=== PATIENT | male | born 1935 | race Caucasian/White ===

== ENCOUNTER 2016-09-21 12:28 | Observation (INO) | payer MEDICARE, BC ==
[2016-09-21] MEDS ORDERED: NS 0.9% 1000 ML* 1,000 ML IV SCH (13:00)
[2016-09-21] MEDS ORDERED: NS 0.9% 1000 ML* 1,000 ML IV ONE (13:35)
[2016-09-21] MEDS ORDERED: Ketorolac INJ* 30 MG/ML 1 ML VIAL IV ONE (13:35)
[2016-09-21 14:13] LABS: Hematocrit 41 % (42-52); Hemoglobin 13.4 g/dl (14.0-18.0); Mean Corpuscular HGB Conc 33 g/dl (31-36); Mean Corpuscular Hemoglobin 31 pg (27-31); Mean Corpuscular Volume 93 fL (80-94); Mean Platelet Volume 10 um3 (7.4-10.4); Red Cell Distribution Width 14 % (10.5-15); White Blood Count 11.5 10^3/ul (3.5-10.8)
[2016-09-21 14:30] LABS: ALT 10 U/L (7-52); AST 14 U/L (13-39); Albumin 3.7 g/dL (3.2-5.2); Alkaline Phosphatase 77 U/L (34-104); Anion Gap 7 mmol/L (2-11); BUN/Creatinine Ratio 23.2 (8-20); Blood Urea Nitrogen 22 mg/dL (6-24); C Reactive Protein 57.57 mg/L (< 5.00); CO2 Carbon Dioxide 27 mmol/L (22-32); Calcium 9.8 mg/dL (8.6-10.3); Chloride 102 mmol/L (101-111); Creatine Kinase 48 U/L (10-223); EGFR African American 97.6 (>60); EGFR Non-African American 75.9 (>60); Globulin 3.3 g/dL (2-4); Glucose 132 mg/dL (70-100); Lipase < 10 U/L (11.0-82.0); Magnesium 1.7 mg/dL (1.9-2.7); Potassium 3.7 mmol/L (3.5-5.0); Sodium 136 mmol/L (133-145)
[2016-09-21 15:03] LABS: TSH (Thyroid Stimulating Horm) 3.01 mcIU/mL (0.34-5.60)
[2016-09-21] MEDS ORDERED: Acetaminophen TAB* 325 MG PO PRN (16:25)
[2016-09-21] MEDS ORDERED: Ondansetron INJ* 2 MG/ML VIAL IV PRN (16:25)
[2016-09-21] MEDS ORDERED: Morphine INJ* 2 MG/ML 1 ML SYRINGE IV PRN (16:36)
[2016-09-21] MEDS ORDERED: oxyCODONE/Acetamin 5/325 MG* TAB ONE (16:45)
[2016-09-21] MEDS: oxyCODONE/Acetamin 5/325 MG* TAB PO PRN (16:49)
[2016-09-21] MEDS ORDERED: Magnesium Sulfate 2 GM IV* 2 GM/50 ML BAG IVPB ONE (16:49)
[2016-09-21 19:07] LABS: Uric Acid 5.5 mg/dL (4.4-7.6)
[2016-09-21] MEDS: Tamsulosin CAP* 0.4 MG PO SCH (19:30)
[2016-09-21] MEDS: NS 0.9% 1000 ML* 1,000 ML IV SCH (19:31)
[2016-09-21] MEDS: Heparin VIAL(*) 5000 UNITS/ML VIAL (FIVE THOUSAND) SUBCUT SCH (21:51)
--- NOTE | 2016-09-21 22:14 | ED ---
Daya Randall Edward, scribed for Felton Chang MD on 09/21/16 at 1320 . Complex/Multi-Sys Presentation - HPI Summary HPI Summary: 81 y/o male presents to ED c/o body aches and bites on his right lower leg. Patient states chronic, intermittent joint problems that became worse two days ago, when the bug bites appeared as well. Patient states lower back, hip, neck, and L elbow. He states he cannot bear weight on legs due to pain. The L elbow soreness is now resolved. Associated sx: rash around bites. Patient was [place] Dr. Michelle Onofre (PCP[place] [facility] [place] and given Doxycycline, of which he took 2 doses and then stopped. - History Of Current Complaint Chief Complaint: EDWeakness Time Seen by Provider: 09/21/16 13:16 Hx Obtained From: Patient Onset/Duration: Gradual Onset, Still Present Timing: Constant Severity Currently: Severe Severity Initially: Severe Location: Pain At: - Lower back, hips, neck, bilateral legs, L elbow, wrist Aggravating Factor(s): Bearing weight Associated Signs And Symptoms: Positive: Back Pain, Other - Rash around bites - Allergies/Home Medications Allergies/Adverse Reactions: Allergies Allergy/AdvReac Type Severity Reaction Status Date / Time seafood Allergy Vomiting Uncoded 01/27/16 08:08 Home Medications: Home Medications Nxeptgy-Ckbiknnkeetgk-Nkcddnnd [Excedrin Extra Strength] 2 tab PO BID PRN [History Confirmed 09/21/16] Calcium Carbonate-Vitamin D [Calcium 500 + D] 1 - 2 tab PO DAILY 09/21/16 [ History Confirmed 09/21/16] Cyanocobalamin TAB* [Vitamin B12 TAB*] 1,000 mcg PO DAILY 09/21/16 [History Confirmed 09/21/16] DOXYcycline CAP(*) [DOXYcycline 100MG CAP(*)] 100 mg PO BID 09/21/16 [History Confirmed 09/21/16] DULoxetine DR CAP* [Cymbalta CAP*] 30 - 60 mg PO DAILY 09/21/16 [History Confirmed 09/21/16] Leuprolide Acetate (NF) [Lupron Depot (NF)] 45 mg IM Q6M 09/21/16 [History Confirmed 09/21/16] Levothyroxine TAB* [Synthroid TAB*] 100 mcg PO DAILY 09/21/16 [History Confirmed 09/21/16] Lidocaine PATCH 5%* [Lidoderm 5% Patch*] 1 - 2 patch TRANSDERM DAILY 09/21/16 [ History Confirmed 09/21/16] Naproxen Sodium [Naproxen Sodium 220 mg] 220 mg PO BID PRN 09/21/16 [History Confirmed 09/21/16] Omeprazole CAP* [Prilosec CAP* 20 MG] 20 mg PO DAILY 09/21/16 [History Confirmed 09/21/16] Sertraline* [Zoloft*] 100 mg PO DAILY 09/21/16 [History Confirmed 09/21/16] Tamsulosin CAP* [Flomax CAP*] 0.4 mg PO BID 09/21/16 [History Confirmed 09/21/16 ] oxyCODONE/Acetamin 5/325 MG* [Percocet 5/325 TAB*] 1 tab PO Q8H PRN 09/21/16 [ History Confirmed 09/21/16] predniSONE TAB* [Deltasone TAB*] 10 mg PO DAILY 09/21/16 [History Confirmed ] PMH/Surg Hx/FS Hx/Imm Hx Previously Healthy: No Endocrine/Hematology History: Reports: Hx Thyroid Disease Denies: Hx Diabetes, Hx Sickle Cell Disease Cardiovascular History: Denies: Hx Hypertension, Hx Pacemaker/ICD, Other Cardiovascular Problems/ Disorders Respiratory History: Denies: Other Respiratory Problems/Disorders GI History: Reports: Hx Gastroesophageal Reflux Disease - ON MEDICATION History: Reports: Hx Kidney Stones - LEFT SIDE Denies: Hx Dialysis, Hx Renal Disease Musculoskeletal History: Reports: Hx Arthritis - SHOULDERS, THUMBS, HANDS Sensory History: Reports: Hx Contacts or Glasses - READING Denies: Hx Hearing Aid Opthamlomology History: Reports: Hx Contacts or Glasses - READING Neurological History: Denies: Other Neuro Impairments/Disorders Psychiatric History: Denies: Hx Panic Disorder - Cancer History Cancer Type, Location and Year: MELANOMA. PROSTATE CA Hx Radiation Therapy: Yes - Surgical History Surgery Procedure, Year, and Place: [place] TOP OF HEAD, CORNER OF LEFT EYE. BILATERAL KNEE REPLACEMENT - 2011 [place]. [facility]- [facility]ULT. UNDESCENDED TESTICLE REMOVAL Hx Anesthesia Reactions: No Infectious Disease History: Denies: Hx Hepatitis, Hx Shingles, Hx Tuberculosis, Traveled Outside the [place] in Last 30 Days - Family History Known Family History: Positive: Other - OSTEOPENIA - Social History Alcohol Use: Daily Alcohol Amount: 2/day Substance Use Type: Reports: Marijuana, Prescribed Substance Use Comment - Amount & Last Used: percocet prn Smoking Status (MU): Former Smoker Type: Cigarettes Have You Smoked in the Last Year: Yes Review of Systems Constitutional: Negative Eyes: Negative ENT: Negative Cardiovascular: Negative Respiratory: Negative Gastrointestinal: Negative Genitourinary: Negative Positive: Arthralgia - Pain in lower back, hips, neck, bilateral legs, L elbow, wrist Skin: Other Positive: Rash - Bites in R lower leg with rash around bites Neurological: Negative Psychological: Normal All Other Systems Reviewed And Are Negative: Yes Physical Exam Triage Information Reviewed: Yes Vital Signs On Initial Exam: Initial Vitals Temp Pulse Resp BP Pulse Ox 97.8 F 70 14 152/63 100 09/21/16 12:38 09/21/16 12:38 09/21/16 12:38 09/21/16 12:38 09/21/16 12:38 Vital Signs Reviewed: Yes Appearance: Positive: Well-Appearing, No Pain Distress Skin: Positive: Warm, Skin Color Reflects Adequate Perfusion, Dry, Other - Excoriated scabbed over lesions sparsely in R lower leg. Head/Face: Positive: Normal Head/Face Inspection Eyes: Positive: Normal ENT: Positive: Normal ENT inspection Neck: Positive: Supple, Tenderness @ - Tender paracervically to palpation., Other: - No meningeal signs. Respiratory/Lung Sounds: Positive: Clear to Auscultation, Breath Sounds Present Cardiovascular: Positive: RRR Abdomen Description: Positive: Nontender, Soft Bowel Sounds: Positive: Present Musculoskeletal: Positive: Normal Neurological: Positive: Normal Psychiatric: Positive: Normal, Affect/Mood Appropriate Diagnostics - Vital Signs Vital Signs Temp Pulse Resp BP Pulse Ox 09/21/16 12:38 97.8 F 70 14 152/63 100 - Laboratory Lab Results: Lab Results 09/21/16 09/21/16 09/21/16 Range/Units 14:00 14:00 14:00 WBC 11.5 H (3.5-10.8) 10^3/ul RBC 4.40 (4.0-5.4) 10^6/ul Hgb 13.4 L (14.0-18.0) g/dl Hct 41 L (42-52) % MCV 93 (80-94) fL MCH 31 (27-31) pg MCHC 33 (31-36) g/dl RDW 14 (10.5-15) % Plt Count 152 (150-450) 10^3/ul MPV 10 (7.4-10.4) um3 Neut % (Auto) 87.6 H (38-83) % Lymph % (Auto) 4.5 L (25-47) % [place] % (Auto) 7.5 (1-9) % Eos % (Auto) 0.1 (0-6) % Baso % (Auto) 0.3 (0-2) % Absolute Neuts (auto) 10.0 H (1.5-7.7) 10^3/ul Absolute Lymphs (auto) 0.5 L (1.0-4.8) 10^3/ul Absolute Monos (auto) 0.9 H (0-0.8) 10^3/ul Absolute Eos (auto) 0 (0-0.6) 10^3/ul Absolute Basos (auto) 0 (0-0.2) 10^3/ul Absolute Nucleated RBC 0.01 10^3/ul Nucleated RBC % 0 ESR (0-40) mm/Hr INR (Anticoag Therapy) 1.13 H (0.89-1.11) APTT 28.1 (26.0-36.3) seconds Sodium 136 (133-145) mmol/L Potassium 3.7 (3.5-5.0) mmol/L Chloride 102 (101-111) mmol/L Carbon Dioxide 27 (22-32) mmol/L Anion Gap 7 (2-11) mmol/L BUN 22 (6-24) mg/dL Creatinine 0.95 (0.67-1.17) mg/dL Est GFR ( Amer) 97.6 (>60) Est GFR (Non-Af Amer) 75.9 (>60) BUN/Creatinine Ratio 23.2 H (8-20) Glucose 132 H (70-100) mg/dL Lactic Acid (0.5-2.0) mmol/L Uric Acid 5.5 (4.4-7.6) mg/dL Calcium 9.8 (8.6-10.3) mg/dL Magnesium 1.7 L (1.9-2.7) mg/dL Total Bilirubin 0.90 (0.2-1.0) mg/dL AST 14 (13-39) U/L ALT 10 (7-52) U/L Alkaline Phosphatase 77 (34-104) U/L Total Creatine Kinase 48 (10-223) U/L CK-MB (CK-2) 1.4 (0.6-6.3) ng/mL Troponin I 0.00 (<0.04) ng/mL C-Reactive Protein 57.57 H (< 5.00) mg/L Total Protein 7.0 (6.4-8.9) g/dL Albumin 3.7 (3.2-5.2) g/dL Globulin 3.3 (2-4) g/dL Albumin/Globulin Ratio 1.1 (1-3) Lipase < 10 L (11.0-82.0) U/L TSH 3.01 (0.34-5.60) mcIU/mL 09/21/16 09/21/16 Range/Units 14:00 14:00 WBC (3.5-10.8) 10^3/ul RBC (4.0-5.4) 10^6/ul Hgb (14.0-18.0) g/dl Hct (42-52) % MCV (80-94) fL MCH (27-31) pg MCHC (31-36) g/dl RDW (10.5-15) % Plt Count (150-450) 10^3/ul MPV (7.4-10.4) um3 Neut % (Auto) (38-83) % Lymph % (Auto) (25-47) % [place] % (Auto) (1-9) % Eos % (Auto) (0-6) % Baso % (Auto) (0-2) % Absolute Neuts (auto) (1.5-7.7) 10^3/ul Absolute Lymphs (auto) (1.0-4.8) 10^3/ul Absolute Monos (auto) (0-0.8) 10^3/ul Absolute Eos (auto) (0-0.6) 10^3/ul Absolute Basos (auto) (0-0.2) 10^3/ul Absolute Nucleated RBC 10^3/ul Nucleated RBC % ESR 33 (0-40) mm/Hr INR (Anticoag Therapy) (0.89-1.11) APTT (26.0-36.3) seconds Sodium (133-145) mmol/L Potassium (3.5-5.0) mmol/L Chloride (101-111) mmol/L Carbon Dioxide (22-32) mmol/L Anion Gap (2-11) mmol/L BUN (6-24) mg/dL Creatinine (0.67-1.17) mg/dL Est GFR ( Amer) (>60) Est GFR (Non-Af Amer) (>60) BUN/Creatinine Ratio (8-20) Glucose (70-100) mg/dL Lactic Acid 1.2 (0.5-2.0) mmol/L Uric Acid (4.4-7.6) mg/dL Calcium (8.6-10.3) mg/dL Magnesium (1.9-2.7) mg/dL Total Bilirubin (0.2-1.0) mg/dL AST (13-39) U/L ALT (7-52) U/L Alkaline Phosphatase (34-104) U/L Total Creatine Kinase (10-223) U/L CK-MB (CK-2) (0.6-6.3) ng/mL Troponin I (<0.04) ng/mL C-Reactive Protein (< 5.00) mg/L Total Protein (6.4-8.9) g/dL Albumin (3.2-5.2) g/dL Globulin (2-4) g/dL Albumin/Globulin Ratio (1-3) Lipase (11.0-82.0) U/L TSH (0.34-5.60) mcIU/mL Result Diagrams: 09/21/16 14:00 09/21/16 14:00 Lab Statement: Any lab studies that have been ordered have been reviewed, and results considered in the medical decision making process. Complex Multi-Symp Course/Dx Course Of Treatment: Mr. Kim saw his PMD about a week ago for 'bites' on his legs, achy joints and was started on doxycyline for a diagnosis of presumed lyme. He stopped the doxycycline after two doses because he felt worse. Now he feels even worse with achy joints. His exam was unremarkable except for tenderness to ROM of many areas. He was given IV rocephin and the hospitalists were asked to see him. - Diagnoses Provider Diagnoses: Sepsis Discharge - Discharge Plan Condition: Stable Disposition: ADMITTED TO [facility] The documentation as recorded by the Daya bridges Edward accurately reflects the service I personally performed and the decisions made by me, Felton Chang MD.
--- NOTE | 2016-09-22 02:06 | HP ---
AMENDED REPORT NOW INCLUDES COSIGNER DESIGNATION CC: Dr. Michelle Onofre * HISTORY AND PHYSICAL: DATE OF ADMISSION: 09/21/16 PRIMARY CARE PROVIDER: Dr. Michelle Onofre. ATTENDING PHYSICIAN: Dr. Banks * (DICTATED BY MARIYA OCHOA NP) CHIEF COMPLAINT: 1. Weakness. 2. Generalized pain. HISTORY OF PRESENT ILLNESS: Mr. Kim is an 81-year-old male patient. He has a history of hypothyroidism, back pain, GERD, depression, and prostate cancer. He comes in to the ER today stating that over the last couple days, he has been more drowsy. He has been aching all over. He has not been feeling well. He has been having pain particularly in his right ankle and foot, more pain when he goes to step on them. He states he has recently had bug bites noted to his lower extremities. There was concern for possible Lyme. He was placed on doxycycline and Cymbalta 2 days ago. The Cymbalta was for possible fibromyalgia according to the patient and the doxy was for possible Lyme. He states he was taking both of these, but he actually started feeling worse 2 days ago, so he stopped them. He has not been taking them for a day. He states he does not have any shortness of breath or chest pain. He states he has noticed that there has been inflammation around the recent bug bites. He denies having any target rashes. He does admit to having some neck pain, but no headache, no confusion, just not feeling well, drowsy and fatigued, and he has been having pain mostly in the right ankle, but also in the elbows, the wrists, the knees. He has generalized aches all over. He was concerned today because the pain was unbearable, he could not really stand on the foot, and the patient came in to the ER to be evaluated. PAST MEDICAL HISTORY: Significant for: 1. Hypothyroidism. 2. Chronic back pain. 3. GERD. 4. Depression. 5. Prostate cancer. PAST SURGICAL HISTORY: 1. The patient has had a hernia repair. 2. Bilateral total knee replacement. HOME MEDICATIONS: Include: 1. Lupron 45 mg IM every 6 months. 2. Vitamin B12 1000 mcg p.o. daily. 3. Excedrin 2 tablets p.o. b.i.d. as needed. 4. Flomax 0.4 mg p.o. b.i.d. 5. Calcium and vitamin D 1 to 2 tablets p.o. daily. 6. Percocet 1 tablet every 8 hours. 7. Lidocaine patch 1 to 2 patches transdermally daily. 8. Naproxen 220 mg p.o. b.i.d. as needed. 9. Prednisone 10 mg daily. 10. Zoloft 100 mg p.o. daily. 11. Prilosec 20 mg daily. 12. Synthroid 100 mcg daily. 13. Cymbalta 36 mg daily. 14. Doxycycline 100 mg p.o. b.i.d. ALLERGIES TO MEDICATIONS: Include no known drug allergies. FAMILY HISTORY: Mother had a history of dementia; father had a history of CVA. SOCIAL HISTORY: He is a former smoker. He does drink 2 cocktails at night. Surrogate decision maker is his . REVIEW OF SYSTEMS: There is no documented fever. He denied having any significant weight change. There was no double vision. There is no ear discharge. There was no rhinorrhea. No sore throat. No thyroid enlargement. Denies having any chest pain. There is no orthopnea. There is no nocturnal dyspnea. There is no abdominal pain. No nausea. No vomiting. No dysuria. No frequency. No seizure. No loss of consciousness. No pruritus. No skin ulcerations. Review of 14 systems completed, all others negative. PHYSICAL EXAMINATION GENERAL: At this time, Mr. Kim is an 81-year-old male patient, coming in to the ER, appears to be well nourished, well developed. VITAL SIGNS: Blood pressure 130/45, pulse 79, respirations 20, O2 sat 95%, and temperature 97.8. HEENT: Head is atraumatic, normocephalic. Eyes: EOMs are intact. Sclerae are anicteric and not pale. Throat: Oral mucosa appears to be moist. No oropharyngeal erythema. NECK: Supple. LUNGS: Clear to auscultation bilaterally. No wheezes, rales, or rhonchi. HEART: Sounds S1, S2. Regular rate and rhythm. No murmurs, rubs, or gallops. ABDOMEN: Soft, flat, and nontender. Bowel sounds present. EXTREMITIES: Pulses were 2+ throughout. He is able to move all 4 extremities at this point. His joints, his is moving them freely. He has no pain with flexion or extension. He did have 5/5 strength. He had no obvious erythema noted to the joints. NEUROLOGIC: He is awake, alert, and oriented x3. No gross focal deficits. SKIN: Intact. He does have small amount of erythema noted to the mid tibial area on the right lower extremity. Otherwise, his skin is intact. LABORATORY DATA: Today revealed a WBC of 11.5, RBC of 4.40, hemoglobin of 13.4 , hematocrit of 41, platelet count 152. INR 1.13. PTT of 28.1. Sodium 136, potassium 3.7, chloride of 102, bicarb 27, BUN 22, creatinine of 0.95, glucose 132. His lactic was 1.2, calcium 9.8, mag 1.7. Total bili 0.9, AST 14, ALT 10, alk phos 77. CK 48, CK-MB 1.4. Troponin 0. Albumin of 3.7. TSH of 3.01. Old medical records were reviewed. ASSESSMENT AND PLAN: Mr. Kim is an 81-year-old male patient coming in to the ER today with complaints of generalized joint pain, aches, and malaise. He will be admitted under observation status for: 1. Weakness: Etiology is unclear. He does have a slightly elevated white count. I think at this point we should send off Lyme serology. I will go ahead and get tick-borne panel, which has been sent by the ER. We will get a CRP. In addition to this, we will get an ESR, rheumatoid factor, MARIBEL, and a uric acid. If the Lyme panels come back positive, then I would probably get in touch with Dr. Negron. At this point, I will put him empirically on Rocephin as he did not tolerate the doxycycline. I ordered a PT evaluation. He is on a small dose of prednisone now. Differential for this generalized ache pain is broad, I mean it could be certainly Lyme, could be polymyalgia rheumatica, could be rheumatoid although this is late onset for that. At this point, I will send off general inflammatory markers and see if we can determine further causation. 2. Hypothyroidism: Continue Synthroid. 3. Chronic back pain: Continue his p.r.n. Percocet. 4. Gastroesophageal reflux disease: Continue PPI therapy. 5. Depression: Continue supportive care. 6. History of prostate cancer: Continue his Lupron. Follow with his primary. 7. DVT prophylaxis: He will be placed on heparin subcu. 8. Code status: Full code. 9. Fluids, electrolytes, and nutrition: He can have a regular diet. TIME SPENT: Time spent on the admission was 60 minutes; greater than half the time was spent [id number] with the patient obtaining my history and physical, other half the time spent going over the plan of care with the patient and implementing plan of care. I did discuss the plan of care with my attending, Dr. Banks; she is in agreement. MARIYA OCHOA, OPERATION AGENT [id number]/CPS #: [id number] JOSE
[2016-09-22 03:35] LABS: Urine Bacteria 1+ (Absent); Urine Bilirubin Negative (Negative); Urine Glucose Negative (Negative); Urine Nitrite Negative (Negative)
[2016-09-22 04:37] LABS: Comments Flag Yes; Hematocrit 36 % (42-52); Hemoglobin 11.8 g/dl (14.0-18.0); Mean Corpuscular HGB Conc 33 g/dl (31-36); Mean Corpuscular Hemoglobin 31 pg (27-31); Mean Corpuscular Volume 94 fL (80-94); Mean Platelet Volume 10 um3 (7.4-10.4); Red Blood Count 3.82 10^6/ul (4.0-5.4); Red Cell Distribution Width 14 % (10.5-15); White Blood Count 10.9 10^3/ul (3.5-10.8)
[2016-09-22 04:51] LABS: BUN/Creatinine Ratio 24.7 (8-20); Calcium 9.1 mg/dL (8.6-10.3); EGFR African American 95.3 (>60); EGFR Non-African American 74.1 (>60); Potassium 3.9 mmol/L (3.5-5.0)
[2016-09-22] MEDS ORDERED: Levothyroxine TAB* 100 MCG TAB PO SCH (06:00)
[2016-09-22] MEDS: Heparin VIAL(*) 5000 UNITS/ML VIAL (FIVE THOUSAND) SUBCUT SCH ×2 (06:01→13:58)
[2016-09-22] MEDS: oxyCODONE/Acetamin 5/325 MG* TAB PO PRN ×2 (06:05→10:59)
[2016-09-22] MEDS: NS 0.9% 1000 ML* 1,000 ML IV SCH (06:54)
[2016-09-22] MEDS ORDERED: Omeprazole CAP* 20 MG PO SCH (07:30)
[2016-09-22] MEDS ORDERED: predniSONE TAB* 10 MG PO SCH (08:30)
--- NOTE | 2016-09-22 08:42 | PN ---
Subjective Date of Service: 09/22/16 Interval History: Mr. Kim states that he is feeling much better than on arrival. He continues to have chronic generalized pain but it is at baseline. He is up ambulating in his room with a walker as needed. He denies other complaint including chest pain, SOB, nausea, or abdominal pain. Objective Active Medications: Acetaminophen (Tylenol Tab*) 650 mg PO Q4H PRN Heparin Sodium (Porcine) (Heparin Vial(*)) 5,000 units SUBCUT Q8HR [facility] Sodium Chloride (Ns 0.9% 1000 Ml*) 1,000 mls @ 100 mls/hr IV PER RATE [facility] Ceftriaxone Sodium 1,000 mg/ (Sodium Chloride) 50 mls @ 200 mls/hr IVPB Q24H [facility] Levothyroxine Sodium (Synthroid Tab*) 100 mcg PO DAILY@0600 [facility] Lidocaine (Lidoderm 5% Patch*) 1 patch TRANSDERM DAILY [facility] Morphine Sulfate (Morphine Inj (Syringe)*) 2 mg IV Q2H PRN Omeprazole (Prilosec Cap*) 20 mg PO DAILY@0730 [facility] Ondansetron HCl (Zofran Inj*) 4 mg IV Q6H PRN Oxycodone/Acetaminophen (Percocet 5/325 Tab*) 1 tab PO Q4H PRN Pharmacy Profile Note (Lidocaine Patch Remove*) 1 note PATCH OFF 2100 [facility] Prednisone (Deltasone Tab*) 10 mg PO DAILY WITH MEAL [facility] Sertraline HCl (Zoloft*) 100 mg PO DAILY [facility] Tamsulosin HCl (Flomax Cap*) 0.4 mg PO 0830,1730 [facility] Vital Signs 09/21/16 09/21/16 09/21/16 16:30 16:49 17:00 Temperature Pulse Rate 74 80 Respiratory 15 18 23 Rate Blood Pressure 109/42 115/42 (mmHg) O2 Sat by Pulse 95 96 Oximetry 09/21/16 09/21/16 09/21/16 19:20 19:26 20:32 Temperature 98.6 F 98.4 F Pulse Rate 75 82 Respiratory 18 16 Rate Blood Pressure 109/44 126/46 (mmHg) O2 Sat by Pulse 95 97 93 Oximetry 09/21/16 09/22/16 09/22/16 23:36 03:21 06:05 Temperature 98.8 F 98.4 F Pulse Rate 67 72 Respiratory 16 16 18 Rate Blood Pressure 135/53 146/59 (mmHg) O2 Sat by Pulse 95 95 Oximetry Oxygen Devices in Use Now: None Appearance: Male sitting up on edge of bed in NAD Eyes: No Scleral Icterus Ears/Nose/Mouth/Throat: Mucous Membranes Moist Neck: Trachea Midline Respiratory: Symmetrical Chest Expansion and Respiratory Effort, Clear to Auscultation Cardiovascular: NL Sounds; No Murmurs; No JVD, No Edema Abdominal: NL Sounds; No Tenderness; No Distention Lymphatic: No Cervical Adenopathy Extremities: No Edema Skin: No Rash or Ulcers Neurological: Alert and Oriented x 3, NL Muscle Strength and Tone Nutrition: Taking PO's Result Diagrams: 09/22/16 04:27 09/22/16 04:27 Additional Lab and Data: Lab Results 09/21/16 09/21/16 09/21/16 Range/Units 14:00 14:00 14:00 WBC 11.5 H (3.5-10.8) 10^3/ul RBC 4.40 (4.0-5.4) 10^6/ul Hgb 13.4 L (14.0-18.0) g/dl Hct 41 L (42-52) % MCV 93 (80-94) fL MCH 31 (27-31) pg MCHC 33 (31-36) g/dl RDW 14 (10.5-15) % Plt Count 152 (150-450) 10^3/ul MPV 10 (7.4-10.4) um3 Neut % (Auto) 87.6 H (38-83) % Lymph % (Auto) 4.5 L (25-47) % [place] % (Auto) 7.5 (1-9) % Eos % (Auto) 0.1 (0-6) % Baso % (Auto) 0.3 (0-2) % Absolute Neuts (auto) 10.0 H (1.5-7.7) 10^3/ul Absolute Lymphs (auto) 0.5 L (1.0-4.8) 10^3/ul Absolute Monos (auto) 0.9 H (0-0.8) 10^3/ul Absolute Eos (auto) 0 (0-0.6) 10^3/ul Absolute Basos (auto) 0 (0-0.2) 10^3/ul Absolute Nucleated RBC 0.01 10^3/ul Nucleated RBC % 0 ESR (0-40) mm/Hr INR (Anticoag Therapy) 1.13 H (0.89-1.11) APTT 28.1 (26.0-36.3) seconds Sodium 136 (133-145) mmol/L Potassium 3.7 (3.5-5.0) mmol/L Chloride 102 (101-111) mmol/L Carbon Dioxide 27 (22-32) mmol/L Anion Gap 7 (2-11) mmol/L BUN 22 (6-24) mg/dL Creatinine 0.95 (0.67-1.17) mg/dL Est GFR ( Amer) 97.6 (>60) Est GFR (Non-Af Amer) 75.9 (>60) BUN/Creatinine Ratio 23.2 H (8-20) Glucose 132 H (70-100) mg/dL Lactic Acid (0.5-2.0) mmol/L Uric Acid 5.5 (4.4-7.6) mg/dL Calcium 9.8 (8.6-10.3) mg/dL Magnesium 1.7 L (1.9-2.7) mg/dL Total Bilirubin 0.90 (0.2-1.0) mg/dL AST 14 (13-39) U/L ALT 10 (7-52) U/L Alkaline Phosphatase 77 (34-104) U/L Total Creatine Kinase 48 (10-223) U/L CK-MB (CK-2) 1.4 (0.6-6.3) ng/mL Troponin I 0.00 (<0.04) ng/mL C-Reactive Protein 57.57 H (< 5.00) mg/L Total Protein 7.0 (6.4-8.9) g/dL Albumin 3.7 (3.2-5.2) g/dL Globulin 3.3 (2-4) g/dL Albumin/Globulin Ratio 1.1 (1-3) Lipase < 10 L (11.0-82.0) U/L TSH 3.01 (0.34-5.60) mcIU/mL 09/21/16 09/21/16 Range/Units 14:00 14:00 WBC (3.5-10.8) 10^3/ul RBC (4.0-5.4) 10^6/ul Hgb (14.0-18.0) g/dl Hct (42-52) % MCV (80-94) fL MCH (27-31) pg MCHC (31-36) g/dl RDW (10.5-15) % Plt Count (150-450) 10^3/ul MPV (7.4-10.4) um3 Neut % (Auto) (38-83) % Lymph % (Auto) (25-47) % [place] % (Auto) (1-9) % Eos % (Auto) (0-6) % Baso % (Auto) (0-2) % Absolute Neuts (auto) (1.5-7.7) 10^3/ul Absolute Lymphs (auto) (1.0-4.8) 10^3/ul Absolute Monos (auto) (0-0.8) 10^3/ul Absolute Eos (auto) (0-0.6) 10^3/ul Absolute Basos (auto) (0-0.2) 10^3/ul Absolute Nucleated RBC 10^3/ul Nucleated RBC % ESR 33 (0-40) mm/Hr INR (Anticoag Therapy) (0.89-1.11) APTT (26.0-36.3) seconds Sodium (133-145) mmol/L Potassium (3.5-5.0) mmol/L Chloride (101-111) mmol/L Carbon Dioxide (22-32) mmol/L Anion Gap (2-11) mmol/L BUN (6-24) mg/dL Creatinine (0.67-1.17) mg/dL Est GFR ( Amer) (>60) Est GFR (Non-Af Amer) (>60) BUN/Creatinine Ratio (8-20) Glucose (70-100) mg/dL Lactic Acid 1.2 (0.5-2.0) mmol/L Uric Acid (4.4-7.6) mg/dL Calcium (8.6-10.3) mg/dL Magnesium (1.9-2.7) mg/dL Total Bilirubin (0.2-1.0) mg/dL AST (13-39) U/L ALT (7-52) U/L Alkaline Phosphatase (34-104) U/L Total Creatine Kinase (10-223) U/L CK-MB (CK-2) (0.6-6.3) ng/mL Troponin I (<0.04) ng/mL C-Reactive Protein (< 5.00) mg/L Total Protein (6.4-8.9) g/dL Albumin (3.2-5.2) g/dL Globulin (2-4) g/dL Albumin/Globulin Ratio (1-3) Lipase (11.0-82.0) U/L TSH (0.34-5.60) mcIU/mL Assess/Plan/Problems-Billing Assessment: Mr. Kim is an 81 yo male with a PMH of prostate cancer, hypothyroidism, and chronic back pain who was admitted on 09/21/16 with generalized weakness and pain. - Patient Problems (1) Weakness Comment: - Generalized pain, patient describes having chronic pain that has been worse the past few days. - Patient reports not being able to ambulate initially but did ambulate with PT today. - In terms of infectious etiology: Neglible leukocytosis resolving. Afebrile. Lyme serology pending. Small wounds to B LE without bulls eye pattern. Minimal time outdoors per his report. Reviewed Dr. Onofre's note who also did not think he had lyme disease but prescribed doxycycline for concern for cellulitis related to bug bite. Pt did receive doxycycline here and tolerated well thus far. - No focal neurological deficits to suggest stroke. - Continue with oxycodone 10mg, patient thinks it may help some. Also recommended that he continue cymbalta which had just been started outpatient by Dr. Onofre. (2) Hypothyroidism Comment: - TSH 3.01. - Continue levothyroxine. (3) Depression Comment: - Continue sertraline. (4) Chronic back pain Comment: - Continue oxycodone and oxycodone as per above. (5) History of prostate cancer Comment: - Continue lupron and flomax. (6) GERD (gastroesophageal reflux disease) Comment: - Continue omeprazole. (7) DVT prophylaxis Comment: - Heparin SQ. (8) Full code status Status and Disposition: OBV. Anticipate discharge to home when medically stable.
[2016-09-22] MEDS ORDERED: Sertraline* 100 MG TAB PO SCH (09:00)
[2016-09-22] MEDS ORDERED: Lidocaine PATCH 5%* 1 PATCH TRANSDERM SCH (09:00)
[2016-09-22] MEDS: Tamsulosin CAP* 0.4 MG PO SCH ×2 (10:58→17:57)
[2016-09-22] MEDS ORDERED: oxyCODONE TAB* 5 MG TAB PO PRN (11:08)
[2016-09-22] MEDS ORDERED: DULoxetine DR CAP* 30 MG CAP.DR PO ONE (14:00)
[2016-09-22] MEDS ORDERED: cefTRIAXone VIAL(*) 1,000 MG in NS 0.9% 50 ML* 50 ML IVPB SCH (14:00)
[2016-09-22] MEDS ORDERED: DOXYcycline CAP(*) 100 MG PO ONE (14:58)
[2016-09-22 17:01] VITALS: BP 125/58
[2016-09-22] MEDS ORDERED: Lidocaine Patch REMOVE* 1 NOTE MISC PATCH OFF SCH (21:00)
[2016-09-22 21:31] LABS: B. miyamotoi PCR, B Negative (Negative); Babesia divergens/MO-1 Negative (Negative); Babesia ducani Negative (Negative); Ehrlichia ewingii/canis Negative (Negative)
--- NOTE | 2016-09-23 20:04 | DS ---
CC: Michelle Onofre MD [facility] MEDICINE DISCHARGE SUMMARY: DATE OF ADMISSION: 09/21/16 DATE OF DISCHARGE: 09/22/16 PRIMARY CARE PHYSICIAN: Michelle Onofre MD. ATTENDING PHYSICIAN: Dr. Marcie Mitchell,* (dictation provided by Kimberly Kelley NP ). PRIMARY DIAGNOSIS: Acute on chronic generalized weakness and pain. SECONDARY DIAGNOSES: 1. Hypothyroidism. 2. Chronic back pain. 3. Gastroesophageal reflux disease. 4. Depression. 5. Prostate cancer. PAST SURGICAL HISTORY: 1. History of hernia repair. 2. Bilateral total knee replacement. MEDICATIONS AT THE TIME OF DISCHARGE: 1. Oxycodone 10 mg p.o. q.4 hours p.r.n. pain. 2. Lupron 45 mg IM q.6 months. 3. Vitamin B12 1000 mcg p.o. daily. 4. Excedrin tabs p.o. b.i.d. as needed. 5. Flomax 0.4 mg p.o. b.i.d. 6. Calcium and vitamin D 1 to 2 tablets p.o. daily. 7. Lidocaine patch 1 to 2 patches transdermally daily. 8. Naproxen 220 mg p.o. b.i.d. as needed. 9. Prednisone 10 mg daily. 10. Zoloft 100 mg p.o. daily. 11. Prilosec 20 mg oral daily. 12. Synthroid 100 mcg daily. 13. Cymbalta 30 mg p.o. daily. 14. Doxycycline 100 mg p.o. b.i.d. HOSPITAL COURSE: Mr. Kim is an 81-year-old male with a past medical history of chronic pain who presented to the hospital on 09/21/16 with concern for weakness and generalized pain. Please see the dictated H and P from Michele Connell NP for complete details. In brief, the patient had been reporting over the past couple of day, he had been aching all over much more than usual. He was having much more pain in his feet, ankles, elbow, neck, shoulders, back. He had noticed that he had bug bites to his lower extremities and was concerned for possible Lyme disease. He did follow up with Dr. Onofre who is his primary care physician. I reviewed her progressed note and she did not feel that the patient had Lyme disease but suspected that perhaps he had a bit of cellulitis over the bug bite sites and prescribed a short course of doxycycline. She also started him on Cymbalta and out of concern for possible fibromyalgia. The patient took the Cymbalta and doxycycline and felt acutely worse in the next 24 to 48 hours and therefore came to the emergency room for evaluation. In the emergency room, the patient had a very mild elevation in his white blood cell count to 11.5; however his ESR was 33, his CRP was 57. The remainder of his labs were unremarkable. Mr. Kim was monitored in the hospital overnight. He was initially placed on ceftriaxone to cover for Lyme disease. I will note that the Lyme disease serology was sent but the results are pending. Based on the patient's history of chronic pain and lack of convincing evidence for Lyme, I suspect that his pain was an exacerbation of his acute underlying pain disorder. He does have an elevated CRP and perhaps he had a viral illness, which is exacerbating this, but I do not have clear sense that Lyme disease is at the root of this. Dr. Onofre agreed with this and she saw his bug bites earlier in the week. The patient has been started on Cymbalta for his pain and he has tolerated that well inpatient. I have also given him a dose of doxycycline and thus far, he has tolerated that well. He has also been started on oxycodone 10 mg q.4 hours p.r.n. pain. I strongly encourage Mr. Kim to continue to followup with Dr. Onofre regarding management of his ongoing chronic pain and to followup with the Lyme serology. I planned to continue his doxycycline and treatment of his cellulitis that she noted at the office visit and that can be discontinued at her discretion. DISPOSITION: To home. DIET: Regular. ACTIVITY: As tolerated. FOLLOW-UP PLANS: Please follow up with Dr. Onofre. The appointment has been made for next week. TIME SPENT: Approximately 60 minutes was spent on the discharge of this patient , more than half that time was spent with the patient at the bedside reviewing the events leading up to this hospitalization and during this hospitalization, performing the physical examination and reviewing the plan of care. KIMBERLY KELLEY, [place] [id number]/[facility] #: [id number] JOSE
[2016-09-25 11:28] LABS: Rheumatoid Factor <15 IU/mL (<15)
== END 2016-09-22 17:50 | disposition home or self-care (01) ==
LOC: ED 12:28 → MED 16:21
PROVIDERS: ADMIT Hospitalist; ATTEND Internal Medicine
DX: R53.1 Weakness (principal); E03.9 Hypothyroidism, unspecified; G89.29 Other chronic pain; M54.9 Dorsalgia, unspecified; K21.9 Gastro-esophageal reflux disease without esophagitis; F32.9 Major depressive disorder, single episode, unspecified; Z85.46 Personal history of malignant neoplasm of prostate; M54.5 Low back pain; Z79.82 Long term (current) use of aspirin; Z87.891 Personal history of nicotine dependence
CPT/HCPCS: 36415; 80048; 80053; 81003; 81015; 82550; 82553; 83605; 83690; 83735; 84443; 84484; 84550; 85025; 85610; 85652; 85730; 86038; 86140; 86431; 86618; 87040; 87086; 87798; 94760; 96374; 96375; 99283; A9270-GY; G0378; G8978-GP-CI; G8979-GP-CI; G8980-GP-CI; J0696; J1644; J1885; J2270; J7512

== ENCOUNTER 2016-09-26 10:54 | Inpatient (IN) | payer BC, MEDICARE ==
[2016-09-26] MEDS ORDERED: NS 0.9% 1000 ML* 1,000 ML IV SCH (12:45)
--- NOTE | 2016-09-26 13:03 | RAD ---
Indication: Confusion. CT of the brain was performed without IV contrast. Ventricular structures are midline. No midline shift is noted. The extra-axial spaces are unremarkable. There is no evidence of intracranial mass or hemorrhage. Periventricular lucency consistent with chronic ischemic White matter change is noted. Hypodensity in the left temporal insula and in the left caudate nucleus consistent with old lacunar infarcts are noted. Calvaria and mastoid air cells as well as the paranasal sinuses are unremarkable. IMPRESSION: Chronic ischemic White matter change with no evidence of intracranial mass or hemorrhage.
[2016-09-26 13:11] LABS: Hematocrit 36 % (42-52); Hemoglobin 11.7 g/dl (14.0-18.0); Mean Corpuscular HGB Conc 33 g/dl (31-36); Mean Corpuscular Hemoglobin 31 pg (27-31); Mean Corpuscular Volume 94 fL (80-94); Mean Platelet Volume 10 um3 (7.4-10.4); Red Blood Count 3.82 10^6/ul (4.0-5.4); Red Cell Distribution Width 13 % (10.5-15); White Blood Count 9.8 10^3/ul (3.5-10.8)
[2016-09-26 13:25] LABS: Ammonia 25 mol/L (16-53)
--- NOTE | 2016-09-26 13:26 | RAD ---
Indication: Confusion. Single frontal view of the chest performed at 1248 hours was reviewed. Comparison is made with previous exam dated January 27, 2009. Cardiomegaly is noted. Lung hunt demonstrate no pleural fluid, pneumonia or pneumothorax. IMPRESSION: NO ACTIVE CARDIOPULMONARY DISEASE IS NOTED. CARDIOMEGALY IS PRESENT.
[2016-09-26 13:27] LABS: ALT 11 U/L (7-52); AST 16 U/L (13-39); Albumin 3.4 g/dL (3.2-5.2); Alkaline Phosphatase 82 U/L (34-104); Anion Gap 7 mmol/L (2-11); BUN/Creatinine Ratio 18.8 (8-20); Blood Urea Nitrogen 19 mg/dL (6-24); C Reactive Protein 145.45 mg/L (< 5.00); CO2 Carbon Dioxide 27 mmol/L (22-32); Calcium 9.8 mg/dL (8.6-10.3); Chloride 98 mmol/L (101-111); Creatine Kinase 34 U/L (10-223); EGFR Non-African American 70.7 (>60); Globulin 3.5 g/dL (2-4); Glucose 106 mg/dL (70-100); Lipase < 10 U/L (11.0-82.0); Magnesium 1.8 mg/dL (1.9-2.7); Potassium 3.2 mmol/L (3.5-5.0); Sodium 132 mmol/L (133-145); Total Protein 6.9 g/dL (6.4-8.9)
[2016-09-26 13:29] LABS: Troponin I 0.01 ng/mL (<0.04)
[2016-09-26 13:31] LABS: B Type Natriuretic Peptide 137 pg/mL
[2016-09-26 13:49] LABS: Acetaminophen < 15 mcg/mL; Alcohol < 10 mg/dL (<10)
[2016-09-26 13:57] LABS: TSH (Thyroid Stimulating Horm) 5.22 mcIU/mL (0.34-5.60)
[2016-09-26 15:52] LABS: Urine Bacteria Absent (Absent); Urine Bilirubin Negative (Negative); Urine Glucose Negative (Negative); Urine Nitrite Negative (Negative)
[2016-09-26] MEDS ORDERED: Acetaminophen TAB* 325 MG PO PRN (16:08)
[2016-09-26] MEDS ORDERED: Naproxen TAB* 250 MG PO PRN (16:12)
[2016-09-26] MEDS ORDERED: Potassium Chlor TAB* 20 MEQ TAB.ER PO ONE (16:14)
[2016-09-26] MEDS: NS 0.9% 1000 ML* 1,000 ML IV SCH (17:00)
[2016-09-26 17:10] LABS: Erythrocyte Sed Rate 89 mm/Hr (0-40)
--- NOTE | 2016-09-26 17:44 | ED ---
Kayden Randall Rebecca, scribed for Petros Abdullahi MD on 09/26/16 at 1215 . Complex/Multi-Sys Presentation - HPI Summary HPI Summary: Pt is an 81 y/o M who presents to ED c/o diffuse body aches in the joints and hallucinations. Body aches began on 09/19 (1 week ago) and have been constant since onset. States that his pain is in all joints, particularly in the feet, ankles and shoulders. Arthralgias aggravated by walking, alleviated by rest. Hallucinations began yesterday, being mild in the afternoon and worsening throughout the evening and night during which he was "in another place," per . Hallucinations have since improved to a fraction of how severe they were previously. Additionally c/o constipation. Denies fever, chills, CP, abd pain, difficulty urinating. Pt was seen on 09/21 for evaluation of joint pain where he was D/C the following day with Rx for Cymbalta, Oxycodone and Doxycycline. reports the pt's last dose of oxycodone was last night at 2030. Discussed the case with Dr. Ulloa this morning who advised he be evaluated by [facility]. - History Of Current Complaint Chief Complaint: EDGeneral Time Seen by Provider: 09/26/16 12:11 Hx Obtained From: Patient, Family/Interior Designer - Onset/Duration: Lasting Weeks - 1 week, Still Present Timing: Constant Location: Pain At: - Diffuse joint pain Character: Dull - Aching Aggravating Factor(s): Walking Alleviating Factor(s): Rest Associated Signs And Symptoms: Positive: Other - Hallucinations, constipation. Negative: Chest Pain, Abdominal Pain, Fever - Allergies/Home Medications Allergies/Adverse Reactions: Allergies Allergy/AdvReac Type Severity Reaction Status Date / Time No Known Drug Allergy Allergy See Comment Verified 09/26/16 16:23 seafood Allergy Vomiting Uncoded 01/27/16 08:08 PMH/Surg Hx/FS Hx/Imm Hx Endocrine/Hematology History: Reports: Hx Thyroid Disease Denies: Hx Diabetes, Hx Sickle Cell Disease Cardiovascular History: Denies: Hx Hypertension, Hx Pacemaker/ICD, Other Cardiovascular Problems/ Disorders Respiratory History: Denies: Other Respiratory Problems/Disorders GI History: Reports: Hx Gastroesophageal Reflux Disease - ON MEDICATION History: Reports: Hx Kidney Stones - LEFT SIDE Denies: Hx Dialysis, Hx Renal Disease Musculoskeletal History: Reports: Hx Arthritis - SHOULDERS, THUMBS, HANDS Sensory History: Reports: Hx Contacts or Glasses - READING, Hx Hearing Problem Denies: Hx Hearing Aid Opthamlomology History: Reports: Hx Contacts or Glasses - READING Neurological History: Denies: Other Neuro Impairments/Disorders Psychiatric History: Denies: Hx Panic Disorder - Cancer History Cancer Type, Location and Year: MELANOMA. PROSTATE CA Hx Radiation Therapy: Yes - Surgical History Surgery Procedure, Year, and Place: MELANOMA TOP OF HEAD, CORNER OF LEFT EYE. BILATERAL KNEE REPLACEMENT - 2011 [place]. [facility]- [facility]. UNDESCENDED TESTICLE REMOVAL Hx Anesthesia Reactions: No Infectious Disease History: No Infectious Disease History: Denies: Hx Hepatitis, Hx Shingles, Hx Tuberculosis, Traveled Outside the [place] in Last 30 Days - Family History Known Family History: Positive: Other - OSTEOPENIA - Social History Alcohol Use: Daily Alcohol Amount: 2/day Substance Use Type: Reports: Marijuana, Prescribed Substance Use Comment - Amount & Last Used: percocet prn Smoking Status (MU): Former Smoker Type: Cigarettes Have You Smoked in the Last Year: Yes Review of Systems Negative: Fever, Chills Negative: Chest Pain Positive: Other - Constipation. Negative: Abdominal Pain Positive: other - Denies difficulty urinating Positive: Arthralgia - Diffuse body aches in the joints Neurological: Other - Hallucinations All Other Systems Reviewed And Are Negative: Yes Physical Exam - Summary Physical Exam Summary: General: well-appearing, no pain distress Skin: warm, skin color reflects adequate perfusion, dry Head: normal Eyes: EOMI, pupils are 2 mm bilaterally ENT: normal Neck: supple, nontender Respiratory: CTA, breath sounds present Cardiovascular: RRR Abdomen: soft, nontender Bowel: present Musculoskeletal: normal, strength/ROM intact Neuro: sensory/motor intact, mildly confused Psych: affect/mood appropriate Triage Information Reviewed: Yes Vital Signs On Initial Exam: Initial Vitals Temp Pulse Resp BP Pulse Ox 97 F 84 17 140/53 92 09/26/16 11:00 09/26/16 11:00 09/26/16 11:00 09/26/16 11:00 09/26/16 11:00 Vital Signs Reviewed: Yes Diagnostics - Vital Signs Vital Signs Temp Pulse Resp BP Pulse Ox 09/26/16 11:00 97 F 84 17 140/53 92 - Laboratory Lab Results: Lab Results 09/26/16 09/26/16 09/26/16 Range/Units 13:00 13:00 13:00 WBC 9.8 (3.5-10.8) 10^3/ul RBC 3.82 L (4.0-5.4) 10^6/ul Hgb 11.7 L (14.0-18.0) g/dl Hct 36 L (42-52) % MCV 94 (80-94) fL MCH 31 (27-31) pg MCHC 33 (31-36) g/dl RDW 13 (10.5-15) % Plt Count 201 (150-450) 10^3/ul MPV 10 (7.4-10.4) um3 Neut % (Auto) 85.1 H (38-83) % Lymph % (Auto) 6.0 L (25-47) % Rhea % (Auto) 7.7 (1-9) % Eos % (Auto) 0.9 (0-6) % Baso % (Auto) 0.3 (0-2) % Absolute Neuts (auto) 8.3 H (1.5-7.7) 10^3/ul Absolute Lymphs (auto) 0.6 L (1.0-4.8) 10^3/ul Absolute Monos (auto) 0.8 (0-0.8) 10^3/ul Absolute Eos (auto) 0.1 (0-0.6) 10^3/ul Absolute Basos (auto) 0 (0-0.2) 10^3/ul Absolute Nucleated RBC 0 10^3/ul Nucleated RBC % 0 ESR 89 H (0-40) mm/Hr INR (Anticoag Therapy) 1.20 H (0.89-1.11) APTT 31.1 (26.0-36.3) seconds Sodium 132 L (133-145) mmol/L Potassium 3.2 L (3.5-5.0) mmol/L Chloride 98 L (101-111) mmol/L Carbon Dioxide 27 (22-32) mmol/L Anion Gap 7 (2-11) mmol/L BUN 19 (6-24) mg/dL Creatinine 1.01 (0.67-1.17) mg/dL Est GFR ( Amer) 91.0 (>60) Est GFR (Non-Af Amer) 70.7 (>60) BUN/Creatinine Ratio 18.8 (8-20) Glucose 106 H (70-100) mg/dL Lactic Acid (0.5-2.0) mmol/L Calcium 9.8 (8.6-10.3) mg/dL Magnesium 1.8 L (1.9-2.7) mg/dL Total Bilirubin 0.40 (0.2-1.0) mg/dL AST 16 (13-39) U/L ALT 11 (7-52) U/L Alkaline Phosphatase 82 (34-104) U/L Ammonia (16-53) mol/L Total Creatine Kinase 34 (10-223) U/L CK-MB (CK-2) 1.7 (0.6-6.3) ng/mL Troponin I 0.01 (<0.04) ng/mL C-Reactive Protein 145.45 H (< 5.00) mg/L B-Natriuretic Peptide ( - 100) pg/mL Total Protein 6.9 (6.4-8.9) g/dL Albumin 3.4 (3.2-5.2) g/dL Globulin 3.5 (2-4) g/dL Albumin/Globulin Ratio 1.0 (1-3) Lipase < 10 L (11.0-82.0) U/L TSH 5.22 (0.34-5.60) mcIU/mL Urine Color Urine Appearance Urine pH (5-9) Ur Specific [place] (1.010-1.030) Urine Protein (Negative) Urine Ketones (Negative) Urine Blood (Negative) Urine Nitrate (Negative) Urine Bilirubin (Negative) Urine Urobilinogen (Negative) Ur Leukocyte Esterase (Negative) Urine WBC (Auto) (Absent) Urine RBC (Auto) (Absent) Urine Bacteria (Absent) Urine Glucose (Negative) Acetaminophen < 15 mcg/mL Serum Alcohol < 10 (<10) mg/dL 09/26/16 09/26/16 09/26/16 Range/Units 13:00 13:00 15:30 WBC (3.5-10.8) 10^3/ul RBC (4.0-5.4) 10^6/ul Hgb (14.0-18.0) g/dl Hct (42-52) % MCV (80-94) fL MCH (27-31) pg MCHC (31-36) g/dl RDW (10.5-15) % Plt Count (150-450) 10^3/ul MPV (7.4-10.4) um3 Neut % (Auto) (38-83) % Lymph % (Auto) (25-47) % Rhea % (Auto) (1-9) % Eos % (Auto) (0-6) % Baso % (Auto) (0-2) % Absolute Neuts (auto) (1.5-7.7) 10^3/ul Absolute Lymphs (auto) (1.0-4.8) 10^3/ul Absolute Monos (auto) (0-0.8) 10^3/ul Absolute Eos (auto) (0-0.6) 10^3/ul Absolute Basos (auto) (0-0.2) 10^3/ul Absolute Nucleated RBC 10^3/ul Nucleated RBC % ESR (0-40) mm/Hr INR (Anticoag Therapy) (0.89-1.11) APTT (26.0-36.3) seconds Sodium (133-145) mmol/L Potassium (3.5-5.0) mmol/L Chloride (101-111) mmol/L Carbon Dioxide (22-32) mmol/L Anion Gap (2-11) mmol/L BUN (6-24) mg/dL Creatinine (0.67-1.17) mg/dL Est GFR ( Amer) (>60) Est GFR (Non-Af Amer) (>60) BUN/Creatinine Ratio (8-20) Glucose (70-100) mg/dL Lactic Acid 1.2 (0.5-2.0) mmol/L Calcium (8.6-10.3) mg/dL Magnesium (1.9-2.7) mg/dL Total Bilirubin (0.2-1.0) mg/dL AST (13-39) U/L ALT (7-52) U/L Alkaline Phosphatase (34-104) U/L Ammonia 25 (16-53) mol/L Total Creatine Kinase (10-223) U/L CK-MB (CK-2) (0.6-6.3) ng/mL Troponin I (<0.04) ng/mL C-Reactive Protein (< 5.00) mg/L B-Natriuretic Peptide 137 H ( - 100) pg/mL Total Protein (6.4-8.9) g/dL Albumin (3.2-5.2) g/dL Globulin (2-4) g/dL Albumin/Globulin Ratio (1-3) Lipase (11.0-82.0) U/L TSH (0.34-5.60) mcIU/mL Urine Color Yellow Urine Appearance Clear Urine pH 5.0 (5-9) Ur Specific [place] 1.016 (1.010-1.030) Urine Protein Negative (Negative) Urine Ketones Negative (Negative) Urine Blood 1+ H (Negative) Urine Nitrate Negative (Negative) Urine Bilirubin Negative (Negative) Urine Urobilinogen Negative (Negative) Ur Leukocyte Esterase Negative (Negative) Urine WBC (Auto) Trace(0-5/hpf) (Absent) Urine RBC (Auto) 1+(3-5/hpf) H (Absent) Urine Bacteria Absent (Absent) Urine Glucose Negative (Negative) Acetaminophen mcg/mL Serum Alcohol (<10) mg/dL Result Diagrams: 09/26/16 13:00 09/26/16 13:00 Lab Statement: Any lab studies that have been ordered have been reviewed, and results considered in the medical decision making process. - Radiology CXR Xray Interpretation: No Acute Changes - NO ACTIVE CARDIOPULMONARY DISEASE IS NOTED. CARDIOMEGALY IS PRESENT. Radiology Interpretation Completed By: Radiologist - CT Brain CT CT Interpretation: No Acute Changes - Chronic ischemic White matter change with no evidence of intracranial mass or hemorrhage. CT Interpretation Completed By: Radiologist - EKG 1306 Cardiac Rate: NL - 94 bpm EKG Rhythm: Sinus Rhythm ST Segment: Normal Ectopy: PACs - Multiple Re-Evaluation - Re-Evaluation First Eval Re-Evaluation Time: 14:08 Comment: Discussed lab, CT and CXR results with the pt and family. Still having hallucinations but has no acute issues otherwise. Complex Multi-Symp Course/Dx Course Of Treatment: NO CRITICAL CARE TIME. ADMIT HOSPITALIST STABLE. - Diagnoses Provider Diagnoses: Hallucinations, Altered mental state - Physician Notifications Discussed Care Of Patient With: Jolanta Ulloa Time Discussed With Above Provider: 14:23 Instructed by Provider To: Other - Reported thta this pt is not hers. Discussed care of pt with Dr. Sergio Robles at 1458 who accepts pt for admission. Discharge - Discharge Plan Condition: Stable Disposition: ADMITTED TO [facility] The documentation as recorded by the Kayden bridges Rebecca accurately reflects the service I personally performed and the decisions made by me, Petros Abdulalhi MD.
[2016-09-26] MEDS ORDERED: Magnesium CITRATE* 300 ML BTL PO ONE (17:52)
[2016-09-26] MEDS ORDERED: Magnesium Hydroxide LIQ* 30 ML UDC PO PRN (17:52)
[2016-09-26] MEDS: Tamsulosin CAP* 0.4 MG PO SCH (20:21)
[2016-09-26] MEDS: Docusate CAP* 100 MG PO SCH (20:21)
--- NOTE | 2016-09-26 23:07 | HP ---
CC: Michelle Onofre MD* HISTORY AND PHYSICAL: DATE OF ADMISSION: 09/26/16 PRIMARY CARE PHYSICIAN: Michelle Onofre MD CHIEF COMPLAINT: Generalized weakness and hallucinations. HISTORY OF PRESENT ILLNESS: Mr. Kim is an 81-year-old male with history of chronic bilateral lower extremity pain as well as prostate cancer, who was hospitalized in our facility from 09/21/16 to 09/22/16 for generalized weakness. There was history of recent bug bites on his legs and possibility of Lyme disease. He states within past week, he was started on Cymbalta for peripheral neuropathy and oxycodone. He was also started on doxycycline. He stopped doxycycline, but he continues on taking Cymbalta and oxycodone. He stated that he filled the oxycodone on 09/22/16 and his had been giving him a dose of oxycodone on an every 4-6 hour basis for the past 3 days. The patient started hallucinating last night. He feels that it is "pouring rain outside" where it is actually very kiana and warm. He also at some point started talking about being in a garage. The patient himself appears to be more aware of this that he was hallucinating. He stated that he has been having posterior neck, bilateral shoulder pain, as well as severe leg cramps for the past several weeks. He saw the color mixer prior to his arrival to [place] from [place] approximately 6 weeks ago, who prescribed him meloxicam and did "multiple tasks" but no diagnosis was established. Somehow it appeared that the patient was on prednisone as outpatient, but he had not taken prednisone for quite some time. He stated also that in the past when he had "his aches and pains" he used prednisone for several days and that would bring relief. I called the pharmacy in [place] in [place] and according to the records , the patient's last dose of Medrol Josafat was two years ago in 2014. The patient is going to be placed on observation with a diagnosis of change in mental status and generalized weakness. PAST MEDICAL HISTORY: 1. Hypothyroidism. 2. Chronic back pain and chronic bilateral lower extremity pain. 3. Gastroesophageal reflux disease. 4. Depression. 5. Prostate cancer, status post radiation and Lupron treatment. 6. History of bilateral total knee replacements. 7. History of hernia repair. 8. 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 MEDICATIONS: Include: 1. Oxycodone 10 mg every 4 hours p.r.n. pain. 2. Synthroid 100 mcg daily. 3. Duloxetine 30 mg daily started within the past week. 4. Doxycycline 100 mg b.i.d. The patient stopped that approximately 4 days ago and did not finish a full course. 5. Meloxicam 7.5 mg b.i.d. p.r.n. 6. Sertraline 100 mg daily. 7. Tamsulosin 0.4 mg b.i.d. ALLERGIES: No known drug allergies. FAMILY HISTORY: Positive for mother with history of dementia and father had a history of CVA. SOCIAL HISTORY: The patient is a former smoker. He drinks an occasional alcoholic beverage a night. He lives with his who is his surrogate. He lives 6 months in [place] and 6 months in [place]. His and himself drove from [place] to [place] 3 weeks ago. REVIEW OF SYSTEMS: Positive for diffuse joint pains and positive for night sweats. Negative for fevers. Positive for confusion after taking oxycodone for approximately 3 days and the confusion and hallucinations had been ongoing for the past 24 hours. These are all visual hallucinations. The patient has history of nocturia and increased urinary frequency ever since his radiation treatment to his prostate and that had been unchanged. He states that he gets up in the middle of the night to go to the bathroom several times. His appetite had been poor ever since he had been on oxycodone and he had been less active and sleeping more while on narcotics for pain. All the remaining 14 systems were reviewed with the patient and and were otherwise negative. PHYSICAL EXAMINATION GENERAL: The patient is a very pleasant 81-year-old male who is in no acute distress. The patient is alert and oriented x3. Despite that, he appears to occasionally say that he is seeing that it is raining outside. VITAL SIGNS: Blood pressure of 119/74, heart rate of 76 and regular, respiratory rate 14, oxygen saturation 94% on room air, temperature of 97.0. HEENT: Head: Atraumatic, normocephalic. Eyes: Pupils equal, reactive to light and accommodation. Oropharynx clear. Mucosa dry. NECK: Supple. No JVD. No bruits bilaterally. RESPIRATORY: Clear to auscultation bilaterally. CARDIOVASCULAR: Regular rate and rhythm. No murmur. ABDOMEN: Soft, nontender. Bowel sounds present in all 4 quadrants. EXTREMITIES: There is trace bilateral ankle edema. Pulses are +2 bilaterally. There is no clubbing or cyanosis. SKIN: The patient has several areas of punctate lesions covered with eschar that is most likely due to insect bites approximately 7 days ago. None of those lesions appeared to be infected. NEUROLOGIC EVALUATION: Speech clear. Cranial nerves II through XII grossly intact. Motor strength is 5/5 bilaterally. PSYCHIATRIC EVALUATION: The patient answers appropriately to questioning and he has good memory. He is able to recall the address of his pharmacy in [place]. He is aware of hallucinating in the past. DIAGNOSTIC STUDIES/LAB DATA: Performed during the hospital stay included: Portable chest x-ray obtained today, impression: "No active cardiopulmonary disease is noted. Cardiomegaly present." Brain CT, impression: "Chronic ischemic white matter change with no evidence of intracranial mass or hemorrhage." The patient's EKG showed what appears to be a sinus rhythm with occasional PAC' s with a heart rate of 94 beats per minute. There appears to be ST changes and Q- waves in inferior leads, most likely due to old inferior NE. Comparing with an EKG from 2013, the inferior wall changes are not new. White blood cell count of 9.9, hemoglobin of 11.7, hematocrit of 36, and platelets of 201,000. MCV of 94. INR of 1.2. Sodium 132, potassium 3.2, chloride 98, carbon dioxide 27, BUN 19, creatinine 1.01. Liver function tests were unremarkable. C-reactive protein of 145. Magnesium was 1.8. Brain natriuretic peptide was 137. Lipase of below 10. TSH of 5.2. Lactic acid of 1.2. Urinalysis showed +1 blood, +1 rbc's, otherwise unremarkable. ASSESSMENT AND PLAN: 1. The patient's change of mental status was noted after he used oxycodone for a couple of days. I believe it is narcotic related. We will take him off narcotics, use Tylenol and naproxen for pain management. 2. In regards to patient's elevation of CRP, diffuse worsening of his chronic arthritic pain. At this point, his ESR is going to be repeated, although a week ago was 33. He does appear to be having symptoms related possibly to polymyalgia rheumatica, although no joint effusion or synovitis was noted on evaluation. He does have point tenderness on palpation of bilateral shoulders and posterior neck. There is no neck stiffness on evaluation. The patient had not been complaining of headaches or visual changes. At this point, it is possible that the patient would respond well to prednisone assuming that his infectious workup is negative. At this point, I will observe him on medical floor overnight with intravenous hydration and no empiric treatment with antibiotic will be instituted. So far, no infection was identified. The patient continues to feel well and afebrile. I will consider treating him with empiric steroids in the morning. It is also possible that he had acute Lyme's, but he did not finish his treatment with doxycycline since he felt poorly when he started the medication. Although his initial Lyme titer was negative, it is possible that it may have been false negative or taken too early. At this point , we will repeat Lyme titer. We will also consider treating the patient with doxycycline if no further infection is identified tomorrow. 3. In regards to hypothyroidism, his TSH is within normal limits and his outpatient Synthroid dose is going to be continued. 4. In regards to history of depression, I will continue him on sertraline. The patient was started on duloxetine dose a week ago and felt poorly since that. I will discontinue it. 5. For DVT prophylaxis, the patient is going to be placed on heparin subcutaneously. 6. The patient's code status is full and his surrogate is his . TIME SPENT: Approximately 65 minutes was spent on admission of this patient, more than half that time was spent [id number] with the patient during the interview and physical exam. [id number]/[facility] #: [id number] JOSE
[2016-09-26] MEDS: Heparin VIAL(*) 5000 UNITS/ML VIAL (FIVE THOUSAND) SUBCUT SCH (23:38)
[2016-09-27] MEDS: NS 0.9% 1000 ML* 1,000 ML IV SCH (02:16)
[2016-09-27] MEDS: Heparin VIAL(*) 5000 UNITS/ML VIAL (FIVE THOUSAND) SUBCUT SCH ×3 (05:43→21:46)
[2016-09-27] MEDS: Levothyroxine TAB* 100 MCG TAB PO SCH (05:43)
[2016-09-27 05:53] LABS: Hematocrit 36 % (42-52); Hemoglobin 11.9 g/dl (14.0-18.0); Mean Corpuscular HGB Conc 33 g/dl (31-36); Mean Corpuscular Hemoglobin 31 pg (27-31); Mean Corpuscular Volume 94 fL (80-94); Mean Platelet Volume 10 um3 (7.4-10.4); Red Blood Count 3.81 10^6/ul (4.0-5.4); Red Cell Distribution Width 13 % (10.5-15); White Blood Count 10.2 10^3/ul (3.5-10.8)
[2016-09-27 06:07] LABS: BUN/Creatinine Ratio 19.6 (8-20); EGFR African American 101.3 (>60); EGFR Non-African American 78.8 (>60); Potassium 3.8 mmol/L (3.5-5.0)
[2016-09-27] MEDS: Tamsulosin CAP* 0.4 MG PO SCH ×2 (08:07→21:46)
[2016-09-27] MEDS: Docusate CAP* 100 MG PO SCH ×2 (08:07→21:42)
[2016-09-27] MEDS: Omeprazole CAP* 20 MG PO SCH (08:07)
[2016-09-27] MEDS: Sertraline* 100 MG TAB PO SCH (08:07)
--- NOTE | 2016-09-27 09:48 | PN ---
Subjective Date of Service: 09/27/16 Interval History: seen and examined with daughter at bedside. Discussed care with at bedside via telephone Pt indicates pain is much better today however continues to experience visual hallucinations. He reports seeing bugs in webs on the wall, a puddle on the floor, and people in the storage room outside his room. He acknowledges that these are hallucinations and is not distressed by their presence. Denies pain with mastication, headache Objective Active Medications: Acetaminophen (Tylenol Tab*) 650 mg PO Q4H PRN PRN Reason: FEVER/PAIN Last Admin: 09/27/16 08:07 Dose: 650 mg Docusate Sodium (Colace Cap*) 100 mg PO BID [facility] Last Admin: 09/27/16 08:07 Dose: 100 mg Heparin Sodium (Porcine) (Heparin Vial(*)) 5,000 units SUBCUT Q8HR [facility] Last Admin: 09/27/16 05:43 Dose: 5,000 units Sodium Chloride (Ns 0.9% 1000 Ml*) 1,000 mls @ 100 mls/hr IV PER RATE [facility] Last Admin: 09/27/16 02:16 Dose: 100 mls/hr Levothyroxine Sodium (Synthroid Tab*) 100 mcg PO DAILY@0600 [facility] Last Admin: 09/27/16 05:43 Dose: 100 mcg Magnesium Hydroxide (Milk Of Magnesia Liq*) 30 ml PO Q4H PRN PRN Reason: CONSTIPATION Last Admin: 09/27/16 08:06 Dose: 30 ml Naproxen (Naprosyn Tab*) 250 mg PO BID PRN PRN Reason: PAIN Last Admin: 09/26/16 20:21 Dose: 250 mg Omeprazole (Prilosec Cap*) 20 mg PO DAILY@0730 [facility] Last Admin: 09/27/16 08:07 Dose: 20 mg Prednisone (Deltasone Tab*) 20 mg PO DAILY [facility] Sertraline HCl (Zoloft*) 100 mg PO DAILY [facility] Last Admin: 09/27/16 08:07 Dose: 100 mg Tamsulosin HCl (Flomax Cap*) 0.4 mg PO BID [facility] Last Admin: 09/27/16 08:07 Dose: 0.4 mg Vital Signs 09/26/16 09/26/16 09/26/16 15:49 16:00 16:40 Temperature 98.5 F Pulse Rate 74 Respiratory 19 14 Rate Blood Pressure 134/97 119/74 (mmHg) O2 Sat by Pulse 94 Oximetry 09/26/16 09/26/16 09/26/16 16:58 17:02 19:45 Temperature 98.3 F 98.3 F 98.7 F Pulse Rate 62 62 88 Respiratory 17 17 16 Rate Blood Pressure 100/58 100/58 104/83 (mmHg) O2 Sat by Pulse 94 94 93 Oximetry 09/26/16 09/27/16 09/27/16 23:39 03:50 07:40 Temperature 98.7 F 98.5 F 97.7 F Pulse Rate 70 87 99 Respiratory 16 20 17 Rate Blood Pressure 129/54 134/48 135/70 (mmHg) O2 Sat by Pulse 92 96 96 Oximetry Oxygen Devices in Use Now: None Appearance: sitting up in bed, NAD Eyes: No Scleral Icterus, PERRLA Ears/Nose/Mouth/Throat: Mucous Membranes Moist, - - mucoid rash on left lateral tongue Neck: NL Appearance and Movements; NL JVP, Trachea Midline Respiratory: Symmetrical Chest Expansion and Respiratory Effort, Clear to Auscultation Cardiovascular: RRR, - - 2/6 NORY Abdominal: NL Sounds; No Tenderness; No Distention, No Hepatosplenomegaly Lymphatic: No Cervical Adenopathy Extremities: No Edema, No Clubbing, Cyanosis Skin: - - small healed bug bites on b/l LE extremities without associated erythema Neurological: Alert and Oriented x 3, - - ROM in shoulders and at elbow limited with OA. strength 4+/5 throughout Result Diagrams: 09/27/16 05:33 09/27/16 05:33 Additional Lab and Data: Lab Results 09/26/16 09/26/16 09/26/16 Range/Units 13:00 13:00 13:00 WBC 9.8 (3.5-10.8) 10^3/ul RBC 3.82 L (4.0-5.4) 10^6/ul Hgb 11.7 L (14.0-18.0) g/dl Hct 36 L (42-52) % MCV 94 (80-94) fL MCH 31 (27-31) pg MCHC 33 (31-36) g/dl RDW 13 (10.5-15) % Plt Count 201 (150-450) 10^3/ul MPV 10 (7.4-10.4) um3 Neut % (Auto) 85.1 H (38-83) % Lymph % (Auto) 6.0 L (25-47) % [place] % (Auto) 7.7 (1-9) % Eos % (Auto) 0.9 (0-6) % Baso % (Auto) 0.3 (0-2) % Absolute Neuts (auto) 8.3 H (1.5-7.7) 10^3/ul Absolute Lymphs (auto) 0.6 L (1.0-4.8) 10^3/ul Absolute Monos (auto) 0.8 (0-0.8) 10^3/ul Absolute Eos (auto) 0.1 (0-0.6) 10^3/ul Absolute Basos (auto) 0 (0-0.2) 10^3/ul Absolute Nucleated RBC 0 10^3/ul Nucleated RBC % 0 ESR 89 H (0-40) mm/Hr INR (Anticoag Therapy) 1.20 H (0.89-1.11) APTT 31.1 (26.0-36.3) seconds Sodium 132 L (133-145) mmol/L Potassium 3.2 L (3.5-5.0) mmol/L Chloride 98 L (101-111) mmol/L Carbon Dioxide 27 (22-32) mmol/L Anion Gap 7 (2-11) mmol/L BUN 19 (6-24) mg/dL Creatinine 1.01 (0.67-1.17) mg/dL Est GFR ( Amer) 91.0 (>60) Est GFR (Non-Af Amer) 70.7 (>60) BUN/Creatinine Ratio 18.8 (8-20) Glucose 106 H (70-100) mg/dL Lactic Acid (0.5-2.0) mmol/L Calcium 9.8 (8.6-10.3) mg/dL Magnesium 1.8 L (1.9-2.7) mg/dL Total Bilirubin 0.40 (0.2-1.0) mg/dL AST 16 (13-39) U/L ALT 11 (7-52) U/L Alkaline Phosphatase 82 (34-104) U/L Ammonia (16-53) mol/L Total Creatine Kinase 34 (10-223) U/L CK-MB (CK-2) 1.7 (0.6-6.3) ng/mL Troponin I 0.01 (<0.04) ng/mL C-Reactive Protein 145.45 H (< 5.00) mg/L B-Natriuretic Peptide ( - 100) pg/mL Total Protein 6.9 (6.4-8.9) g/dL Albumin 3.4 (3.2-5.2) g/dL Globulin 3.5 (2-4) g/dL Albumin/Globulin Ratio 1.0 (1-3) Lipase < 10 L (11.0-82.0) U/L TSH 5.22 (0.34-5.60) mcIU/mL Urine Color Urine Appearance Urine pH (5-9) Ur Specific [place] (1.010-1.030) Urine Protein (Negative) Urine Ketones (Negative) Urine Blood (Negative) Urine Nitrate (Negative) Urine Bilirubin (Negative) Urine Urobilinogen (Negative) Ur Leukocyte Esterase (Negative) Urine WBC (Auto) (Absent) Urine RBC (Auto) (Absent) Urine Bacteria (Absent) Urine Glucose (Negative) Acetaminophen < 15 mcg/mL Serum Alcohol < 10 (<10) mg/dL 09/26/16 09/26/16 09/26/16 Range/Units 13:00 13:00 15:30 WBC (3.5-10.8) 10^3/ul RBC (4.0-5.4) 10^6/ul Hgb (14.0-18.0) g/dl Hct (42-52) % MCV (80-94) fL MCH (27-31) pg MCHC (31-36) g/dl RDW (10.5-15) % Plt Count (150-450) 10^3/ul MPV (7.4-10.4) um3 Neut % (Auto) (38-83) % Lymph % (Auto) (25-47) % [place] % (Auto) (1-9) % Eos % (Auto) (0-6) % Baso % (Auto) (0-2) % Absolute Neuts (auto) (1.5-7.7) 10^3/ul Absolute Lymphs (auto) (1.0-4.8) 10^3/ul Absolute Monos (auto) (0-0.8) 10^3/ul Absolute Eos (auto) (0-0.6) 10^3/ul Absolute Basos (auto) (0-0.2) 10^3/ul Absolute Nucleated RBC 10^3/ul Nucleated RBC % ESR (0-40) mm/Hr INR (Anticoag Therapy) (0.89-1.11) APTT (26.0-36.3) seconds Sodium (133-145) mmol/L Potassium (3.5-5.0) mmol/L Chloride (101-111) mmol/L Carbon Dioxide (22-32) mmol/L Anion Gap (2-11) mmol/L BUN (6-24) mg/dL Creatinine (0.67-1.17) mg/dL Est GFR ( Amer) (>60) Est GFR (Non-Af Amer) (>60) BUN/Creatinine Ratio (8-20) Glucose (70-100) mg/dL Lactic Acid 1.2 (0.5-2.0) mmol/L Calcium (8.6-10.3) mg/dL Magnesium (1.9-2.7) mg/dL Total Bilirubin (0.2-1.0) mg/dL AST (13-39) U/L ALT (7-52) U/L Alkaline Phosphatase (34-104) U/L Ammonia 25 (16-53) mol/L Total Creatine Kinase (10-223) U/L CK-MB (CK-2) (0.6-6.3) ng/mL Troponin I (<0.04) ng/mL C-Reactive Protein (< 5.00) mg/L B-Natriuretic Peptide 137 H ( - 100) pg/mL Total Protein (6.4-8.9) g/dL Albumin (3.2-5.2) g/dL Globulin (2-4) g/dL Albumin/Globulin Ratio (1-3) Lipase (11.0-82.0) U/L TSH (0.34-5.60) mcIU/mL Urine Color Yellow Urine Appearance Clear Urine pH 5.0 (5-9) Ur Specific [place] 1.016 (1.010-1.030) Urine Protein Negative (Negative) Urine Ketones Negative (Negative) Urine Blood 1+ H (Negative) Urine Nitrate Negative (Negative) Urine Bilirubin Negative (Negative) Urine Urobilinogen Negative (Negative) Ur Leukocyte Esterase Negative (Negative) Urine WBC (Auto) Trace(0-5/hpf) (Absent) Urine RBC (Auto) 1+(3-5/hpf) H (Absent) Urine Bacteria Absent (Absent) Urine Glucose Negative (Negative) Acetaminophen mcg/mL Serum Alcohol (<10) mg/dL Assess/Plan/Problems-Billing Assessment: 81 yo M h/o prostate ca, hypothyroidism, fibromyalgia, depression p/w visual hallucinations and found with elevated CRP/ESR - Patient Problems (1) Polymyalgia rheumatica syndrome Comment: Suspect contributing to pain and elevated inflammatory markers. No other indication of infection Start predninsone 20mg daily and monitor (2) Visual hallucination Comment: Suspect in setting of polypharmacy stop doxycycline, cymbalata, and oxycodone. Of note, pt has taken oxycodone many times in the past for pain w/out hallucinations. (3) Depression Comment: - Continue sertraline. (4) Hypothyroidism Comment: Continue levothyroxine. (5) DVT prophylaxis Comment: HSQ
[2016-09-27] MEDS: predniSONE TAB* 20 MG PO SCH (11:33)
[2016-09-27] MEDS ORDERED: Haloperidol INJ IV/IM* 5 MG/ML AMP IV SLOW PU PRN (22:13)
[2016-09-27] MEDS ORDERED: Haloperidol INJ IV/IM* 5 MG/ML AMP ONE (22:18)
[2016-09-28] MEDS: Heparin VIAL(*) 5000 UNITS/ML VIAL (FIVE THOUSAND) SUBCUT SCH ×3 (05:24→20:52)
[2016-09-28] MEDS: Levothyroxine TAB* 100 MCG TAB PO SCH (05:24)
[2016-09-28] MEDS: Omeprazole CAP* 20 MG PO SCH (08:50)
[2016-09-28] MEDS: Tamsulosin CAP* 0.4 MG PO SCH ×2 (08:51→20:52)
[2016-09-28] MEDS: predniSONE TAB* 20 MG PO SCH (08:51)
[2016-09-28] MEDS: Sertraline* 100 MG TAB PO SCH (08:51)
[2016-09-28] MEDS: Docusate CAP* 100 MG PO SCH ×2 (08:52→20:52)
--- NOTE | 2016-09-28 11:57 | CONSULT ---
Identification - Patient Identification Reason for Psychiatric Consultation: Suicidal Ideation -: Patient is a 81 year old, M admitted on 09/27/16. - MHU Identification Employment Status: Retired Hx Psychiatric Hospitalization: No Prior Psychiatric Diagnosis: Unspecified depressive d/o Arrived to Hospital Via: Ambulatory History - Objective HPI: CONSULT QUESTION: Evaluation of depression and SI as to need for psychiatric admission HPI: ---- 81yo male patient with PPHx significant for unspecified depressive d/o presented to [facility] ED on 09/26/16, brought in by , reporting acute AMS and VHs. Patient admitted 09/27/16 for delirium likely 2/2 new Rx'd Oxycodone. Patient was Rx'd Oxycodone during a 09/22/16 [facility] hospitalization for new onset fatigue, myalgias and arthralgias associated with new skin lesions. Of note, just prior to the 09/22/16 admission, patient had new meds started by his PCP for suspected Lyme dz vs Fibromyalgia, Doxycycline and Cymbalta respectively. On admission to the medical floor, Doxycycline, Cymbalta and Oxycodone were discontinued as polypharmacy likely the etiology of delirium. During admission, patient experienced anxiety and agitation with episodes of aggressive behaviors toward staff. He was given a Haldol 5mg IM injection x1 late 09/27/16 and has since cleared. Psychiatry consulted as patient today reported worsening depression recently. He also expressed to his primary physician a suicidal plan if his condition worsens. 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 He reports last completing a boat late last year. 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 Patient reports anxiety associated with his dx of prostate cancer and reports his [facility] medical appts are frustrating and too time consuming. Patient denies other stressors reporting no legal issues, no financial issues, and fair relation with his and family. Patient denies alcohol of illicit substances are involved in his worsening depression. Patient reports compliance with Zoloft 50mg daily, which is Rx'd by his PCP. Patient reports no hx of trauma, no hx of psychosis and no hx of psychiatric hospitalization. ASSESSMENT: 1. Delirium 2/2 medications, now resolved 2. 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 Patient is A&Ox3, linear in TP, and appropriate in TC. He endorses depression and identifies his triggering stressors including mounting medical issues, stress of purchasing a home while selling another, and the recent deterioration of his ability to function as he used to. Patient is currently psychiatrically stable. Patient denies SI/HI and AH/ VH. Patient offered admission but declined. There is no indication for involuntary commitment to the psychiatric unit. 2. Recommend increase Zoloft dose from 100mg to 150mg po qdaily for depression/ anxiety. Max dose is 200mg daily. Patients experience most benefit at 150mg daily. 3. Patient is amenable to outpatient psychiatry clinic follow up. Unit SW can call either clinic for intake appts: [facility] [phone] 2. Office of Audelia Edmonds NP [place], [place] [phone] MSE: ----- Appearance - elderly obese male, looks stated age, in NAD Behavior - bradykinetic 2/2 pain, calm, cooperative Speech - RVR wnl, prosody wnl Eye Contact - fair Mood - "depressed" Affect - dysphoric TP - linear and GD TC - focused on discharge home Perception - no symptoms of psychosis currently reported or noted Orientation - A&Ox3 Cognition - intact Insight - fair Judgement - fair SI / HI - denies both Past Psych Hx: Inpt - none Outpt - none Psychotropic med hx - Zoloft, Rx'd by PCP Suicide attempt Hx / SIB Hx: NONE Substance Hx: NONE Medical Hx: 1. Hypothyroidism 2. Chronic back pain 3. GERD 4. Prostate CA s/p radiation tx and Lupron tx Surgical Hx: 1. 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 Hx of hernia repair 3. 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 - and lives with -Large supportive family -Patient reports no firearms in his home Vitals: ------ Vital Signs (72 hours) 09/26/16 09/26/16 09/26/16 11:00 12:24 12:25 Temperature 97 F Pulse Rate 84 82 Respiratory 17 15 Rate Blood Pressure 140/53 126/91 (mmHg) O2 Sat by Pulse 92 96 Oximetry 09/26/16 09/26/16 09/26/16 13:00 14:00 15:00 Temperature Pulse Rate 75 37 45 Respiratory 19 20 16 Rate Blood Pressure (mmHg) O2 Sat by Pulse 94 95 95 Oximetry 09/26/16 09/26/16 09/26/16 15:49 16:00 16:40 Temperature 98.5 F Pulse Rate 74 Respiratory 19 14 Rate Blood Pressure 134/97 119/74 (mmHg) O2 Sat by Pulse 94 Oximetry 09/26/16 09/26/16 09/26/16 16:58 17:02 19:45 Temperature 98.3 F 98.3 F 98.7 F Pulse Rate 62 62 88 Respiratory 17 17 16 Rate Blood Pressure 100/58 100/58 104/83 (mmHg) O2 Sat by Pulse 94 94 93 Oximetry 09/26/16 09/27/16 09/27/16 23:39 03:50 07:40 Temperature 98.7 F 98.5 F 97.7 F Pulse Rate 70 87 99 Respiratory 16 20 17 Rate Blood Pressure 129/54 134/48 135/70 (mmHg) O2 Sat by Pulse 92 96 96 Oximetry 09/27/16 09/27/16 09/27/16 08:00 11:47 15:26 Temperature 97.9 F 98.5 F Pulse Rate 62 78 Respiratory 17 16 15 Rate Blood Pressure 121/69 142/78 (mmHg) O2 Sat by Pulse 95 96 Oximetry 09/27/16 09/27/16 09/28/16 19:57 23:28 03:34 Temperature 98.0 F Pulse Rate 87 90 103 Respiratory 17 16 18 Rate Blood Pressure 158/73 137/69 132/79 (mmHg) O2 Sat by Pulse 89 97 93 Oximetry 09/28/16 09/28/16 09/28/16 07:15 09:09 11:37 Temperature 98.1 F 98.3 F Pulse Rate 65 36 Respiratory 16 16 16 Rate Blood Pressure 147/60 150/69 (mmHg) O2 Sat by Pulse 95 95 Oximetry LABS: ----- Cxr - unremarkable CT head - unremarkable Laboratory Tests 09/26/16 09/26/16 09/26/16 13:00 13:00 13:00 WBC 9.8 RBC 3.82 L Hgb 11.7 L Hct 36 L MCV 94 MCH 31 MCHC 33 RDW 13 Plt Count 201 MPV 10 Neut % (Auto) 85.1 H Lymph % (Auto) 6.0 L [place] % (Auto) 7.7 Eos % (Auto) 0.9 Baso % (Auto) 0.3 Absolute Neuts (auto) 8.3 H Absolute Lymphs (auto) 0.6 L Absolute Monos (auto) 0.8 Absolute Eos (auto) 0.1 Absolute Basos (auto) 0 Absolute Nucleated RBC 0 Nucleated RBC % 0 ESR 89 H INR (Anticoag Therapy) 1.20 H APTT 31.1 Sodium 132 L Potassium 3.2 L Chloride 98 L Carbon Dioxide 27 Anion Gap 7 BUN 19 Creatinine 1.01 Est GFR ( Amer) 91.0 Est GFR (Non-Af Amer) 70.7 BUN/Creatinine Ratio 18.8 Glucose 106 H Lactic Acid Calcium 9.8 Magnesium 1.8 L Total Bilirubin 0.40 AST 16 ALT 11 Alkaline Phosphatase 82 Ammonia Total Creatine Kinase 34 CK-MB (CK-2) 1.7 Troponin I 0.01 C-Reactive Protein 145.45 H B-Natriuretic Peptide Total Protein 6.9 Albumin 3.4 Globulin 3.5 Albumin/Globulin Ratio 1.0 Lipase < 10 L TSH 5.22 Urine Color Urine Appearance Urine pH Ur Specific [place] Urine Protein Urine Ketones Urine Blood Urine Nitrate Urine Bilirubin Urine Urobilinogen Ur Leukocyte Esterase Urine WBC (Auto) Urine RBC (Auto) Urine Bacteria Urine Glucose Acetaminophen < 15 Serum Alcohol < 10 Lyme Disease Serology 09/26/16 09/26/16 09/26/16 13:00 13:00 13:00 WBC RBC Hgb Hct MCV MCH MCHC RDW Plt Count MPV Neut % (Auto) Lymph % (Auto) [place] % (Auto) Eos % (Auto) Baso % (Auto) Absolute Neuts (auto) Absolute Lymphs (auto) Absolute Monos (auto) Absolute Eos (auto) Absolute Basos (auto) Absolute Nucleated RBC Nucleated RBC % ESR INR (Anticoag Therapy) APTT Sodium Potassium Chloride Carbon Dioxide Anion Gap BUN Creatinine Est GFR ( Amer) Est GFR (Non-Af Amer) BUN/Creatinine Ratio Glucose Lactic Acid 1.2 Calcium Magnesium Total Bilirubin AST ALT Alkaline Phosphatase Ammonia 25 Total Creatine Kinase CK-MB (CK-2) Troponin I C-Reactive Protein B-Natriuretic Peptide 137 H Total Protein Albumin Globulin Albumin/Globulin Ratio Lipase TSH Urine Color Urine Appearance Urine pH Ur Specific [place] Urine Protein Urine Ketones Urine Blood Urine Nitrate Urine Bilirubin Urine Urobilinogen Ur Leukocyte Esterase Urine WBC (Auto) Urine RBC (Auto) Urine Bacteria Urine Glucose Acetaminophen Serum Alcohol Lyme Disease Serology Negative 09/26/16 09/27/16 09/27/16 15:30 05:33 05:33 WBC 10.2 RBC 3.81 L Hgb 11.9 L Hct 36 L MCV 94 MCH 31 MCHC 33 RDW 13 Plt Count 221 MPV 10 Neut % (Auto) 87.2 H Lymph % (Auto) 5.6 L [place] % (Auto) 6.7 Eos % (Auto) 0.2 Baso % (Auto) 0.3 Absolute Neuts (auto) 8.8 H Absolute Lymphs (auto) 0.6 L Absolute Monos (auto) 0.7 Absolute Eos (auto) 0 Absolute Basos (auto) 0 Absolute Nucleated RBC 0 Nucleated RBC % 0 ESR INR (Anticoag Therapy) APTT Sodium 134 Potassium 3.8 Chloride 101 Carbon Dioxide 27 Anion Gap 6 BUN 18 Creatinine 0.92 Est GFR ( Amer) 101.3 Est GFR (Non-Af Amer) 78.8 BUN/Creatinine Ratio 19.6 Glucose 125 H Lactic Acid Calcium 10.0 Magnesium Total Bilirubin AST ALT Alkaline Phosphatase Ammonia Total Creatine Kinase CK-MB (CK-2) Troponin I C-Reactive Protein B-Natriuretic Peptide Total Protein Albumin Globulin Albumin/Globulin Ratio Lipase TSH Urine Color Yellow Urine Appearance Clear Urine pH 5.0 Ur Specific [place] 1.016 Urine Protein Negative Urine Ketones Negative Urine Blood 1+ H Urine Nitrate Negative Urine Bilirubin Negative Urine Urobilinogen Negative Ur Leukocyte Esterase Negative Urine WBC (Auto) Trace(0-5/hpf) Urine RBC (Auto) 1+(3-5/hpf) H Urine Bacteria Absent Urine Glucose Negative Acetaminophen Serum Alcohol Lyme Disease Serology Past Medical History: see HPI Lab Results: see HPI Radiology Results: Cxr - unremarkable CT head - unremarkable Exam Appearance: Other - Elderly, obese male Hygiene: Normal Grooming: Fairly Well Kept Psychomotor Activities: Normal Exhibits Abnormal Movement: No Attitude and Relatedness: Cooperative Eye Contact: Fair - Speech Quality: Unpressured Latencies: Normal Quantity: Appropriate Patient's Decription of Mood: "Okay" Observed Affect: Fair Affect Consistent with: Dysphoria Patient's Thought Process: Coherent Thought Content: No Passive Wish, No Suicidal Planning, No Homicidal Ideation, No Paranoid Ideation Experiencing Hallucinations: No, Sensorium is Clear Type of Hallucinations: Visual: No, Auditory: No, Command: No Level of Consciousness: Alert Orientation: Yes Intact, Yes Orientated to Time, Yes Orientated to Place, Yes Orientated to Person Impulse Control: Intact Insight and Judgement: Fair Impression - Impression Inpatient DSM-IV Dx: 1. Delirium 2/2 medications, now resolved. 2. 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 Patient is A&Ox3, linear in TP, and appropriate in TC. He endorses depression and identifies his triggering stressors including mounting medical issues, stress of purchasing a home while selling another, and the recent deterioration of his ability to function as he used to. Patient is currently psychiatrically stable. Patient denies SI/HI and AH/ VH. Patient offered admission but declined. There is no indication for involuntary commitment to the psychiatric unit. 2. Recommend increase Zoloft dose from 100mg to 150mg po qdaily for depression/ anxiety. Max dose is 200mg daily. Patients experience most benefit at 150mg daily. 3. Patient is amenable to outpatient psychiatry clinic follow up. Unit SW can call either clinic for intake appts: 1. [facility], [facility] [phone] 2. Office of Audelia Edmonds,[place], [place] [phone] Medications: Current Medications Acetaminophen (Tylenol Tab*) 650 mg PO Q4H PRN PRN Reason: FEVER/PAIN Last Admin: 09/27/16 08:07 Dose: 650 mg Docusate Sodium (Colace Cap*) 100 mg PO BID [facility] Last Admin: 09/28/16 08:52 Dose: Not Given Heparin Sodium (Porcine) (Heparin Vial(*)) 5,000 units SUBCUT Q8HR [facility] Last Admin: 09/28/16 05:24 Dose: 5,000 units Sodium Chloride (Ns 0.9% 1000 Ml*) 1,000 mls @ 100 mls/hr IV PER RATE [facility] Last Admin: 09/27/16 02:16 Dose: 100 mls/hr Levothyroxine Sodium (Synthroid Tab*) 100 mcg PO DAILY@0600 [facility] Last Admin: 09/28/16 05:24 Dose: 100 mcg Magnesium Hydroxide (Milk Of Magnesia Liq*) 30 ml PO Q4H PRN PRN Reason: CONSTIPATION Last Admin: 09/27/16 08:06 Dose: 30 ml Naproxen (Naprosyn Tab*) 250 mg PO BID PRN PRN Reason: PAIN Last Admin: 09/26/16 20:21 Dose: 250 mg Omeprazole (Prilosec Cap*) 20 mg PO DAILY@0730 [facility] Last Admin: 09/28/16 08:50 Dose: 20 mg Prednisone (Deltasone Tab*) 20 mg PO DAILY [facility] Last Admin: 09/28/16 08:51 Dose: 20 mg Sertraline HCl (Zoloft*) 100 mg PO DAILY [facility] Last Admin: 09/28/16 08:51 Dose: 100 mg Tamsulosin HCl (Flomax Cap*) 0.4 mg PO BID [facility] Last Admin: 09/28/16 08:51 Dose: 0.4 mg - Discharge Plan Discharge Plan: Outpatient Follow Up [facility]
--- NOTE | 2016-09-28 19:15 | PN ---
Subjective Date of Service: 09/28/16 Interval History: Seen and examined this AM with son at bedside. Seen again later with Overnight more agitated and required haldol. Feels more depressed today. Indicates passive suicidal ideation with future plan to OD on medication should he consider suicide. Pain is resolved. Hallucinations resolved. Objective Active Medications: Acetaminophen (Tylenol Tab*) 650 mg PO Q4H PRN PRN Reason: FEVER/PAIN Last Admin: 09/27/16 08:07 Dose: 650 mg Docusate Sodium (Colace Cap*) 100 mg PO BID [facility] Last Admin: 09/28/16 08:52 Dose: Not Given Heparin Sodium (Porcine) (Heparin Vial(*)) 5,000 units SUBCUT Q8HR [facility] Last Admin: 09/28/16 13:43 Dose: 5,000 units Sodium Chloride (Ns 0.9% 1000 Ml*) 1,000 mls @ 100 mls/hr IV PER RATE [facility] Last Admin: 09/27/16 02:16 Dose: 100 mls/hr Levothyroxine Sodium (Synthroid Tab*) 100 mcg PO DAILY@0600 [facility] Last Admin: 09/28/16 05:24 Dose: 100 mcg Magnesium Hydroxide (Milk Of Magnesia Liq*) 30 ml PO Q4H PRN PRN Reason: CONSTIPATION Last Admin: 09/27/16 08:06 Dose: 30 ml Naproxen (Naprosyn Tab*) 250 mg PO BID PRN PRN Reason: PAIN Last Admin: 09/26/16 20:21 Dose: 250 mg Omeprazole (Prilosec Cap*) 20 mg PO DAILY@0730 [facility] Last Admin: 09/28/16 08:50 Dose: 20 mg Prednisone (Deltasone Tab*) 20 mg PO DAILY [facility] Last Admin: 09/28/16 08:51 Dose: 20 mg Sertraline HCl (Zoloft*) 100 mg PO DAILY [facility] Last Admin: 09/28/16 08:51 Dose: 100 mg Tamsulosin HCl (Flomax Cap*) 0.4 mg PO BID [facility] Last Admin: 09/28/16 08:51 Dose: 0.4 mg Vital Signs 09/27/16 09/27/16 09/28/16 19:57 23:28 03:34 Temperature 98.0 F Pulse Rate 87 90 103 Respiratory 17 16 18 Rate Blood Pressure 158/73 137/69 132/79 (mmHg) O2 Sat by Pulse 89 97 93 Oximetry 09/28/16 09/28/16 09/28/16 07:15 09:09 11:37 Temperature 98.1 F 98.3 F Pulse Rate 65 36 Respiratory 16 16 16 Rate Blood Pressure 147/60 150/69 (mmHg) O2 Sat by Pulse 95 95 Oximetry 09/28/16 15:17 Temperature 98.6 F Pulse Rate 74 Respiratory 16 Rate Blood Pressure 143/73 (mmHg) O2 Sat by Pulse 98 Oximetry Oxygen Devices in Use Now: None Appearance: sitting in chair, NAD Eyes: No Scleral Icterus, PERRLA Ears/Nose/Mouth/Throat: Mucous Membranes Moist Neck: NL Appearance and Movements; NL JVP Respiratory: Symmetrical Chest Expansion and Respiratory Effort, Clear to Auscultation Cardiovascular: RRR Abdominal: NL Sounds; No Tenderness; No Distention, No Hepatosplenomegaly Lymphatic: No Cervical Adenopathy Extremities: No Edema Neurological: Alert and Oriented x 3 Result Diagrams: 09/27/16 05:33 09/27/16 05:33 Additional Lab and Data: Lab Results 09/26/16 09/26/16 09/26/16 Range/Units 13:00 13:00 13:00 WBC 9.8 (3.5-10.8) 10^3/ul RBC 3.82 L (4.0-5.4) 10^6/ul Hgb 11.7 L (14.0-18.0) g/dl Hct 36 L (42-52) % MCV 94 (80-94) fL MCH 31 (27-31) pg MCHC 33 (31-36) g/dl RDW 13 (10.5-15) % Plt Count 201 (150-450) 10^3/ul MPV 10 (7.4-10.4) um3 Neut % (Auto) 85.1 H (38-83) % Lymph % (Auto) 6.0 L (25-47) % Walsh % (Auto) 7.7 (1-9) % Eos % (Auto) 0.9 (0-6) % Baso % (Auto) 0.3 (0-2) % Absolute Neuts (auto) 8.3 H (1.5-7.7) 10^3/ul Absolute Lymphs (auto) 0.6 L (1.0-4.8) 10^3/ul Absolute Monos (auto) 0.8 (0-0.8) 10^3/ul Absolute Eos (auto) 0.1 (0-0.6) 10^3/ul Absolute Basos (auto) 0 (0-0.2) 10^3/ul Absolute Nucleated RBC 0 10^3/ul Nucleated RBC % 0 ESR 89 H (0-40) mm/Hr INR (Anticoag Therapy) 1.20 H (0.89-1.11) APTT 31.1 (26.0-36.3) seconds Sodium 132 L (133-145) mmol/L Potassium 3.2 L (3.5-5.0) mmol/L Chloride 98 L (101-111) mmol/L Carbon Dioxide 27 (22-32) mmol/L Anion Gap 7 (2-11) mmol/L BUN 19 (6-24) mg/dL Creatinine 1.01 (0.67-1.17) mg/dL Est GFR ( Amer) 91.0 (>60) Est GFR (Non-Af Amer) 70.7 (>60) BUN/Creatinine Ratio 18.8 (8-20) Glucose 106 H (70-100) mg/dL Lactic Acid (0.5-2.0) mmol/L Calcium 9.8 (8.6-10.3) mg/dL Magnesium 1.8 L (1.9-2.7) mg/dL Total Bilirubin 0.40 (0.2-1.0) mg/dL AST 16 (13-39) U/L ALT 11 (7-52) U/L Alkaline Phosphatase 82 (34-104) U/L Ammonia (16-53) mol/L Total Creatine Kinase 34 (10-223) U/L CK-MB (CK-2) 1.7 (0.6-6.3) ng/mL Troponin I 0.01 (<0.04) ng/mL C-Reactive Protein 145.45 H (< 5.00) mg/L B-Natriuretic Peptide ( - 100) pg/mL Total Protein 6.9 (6.4-8.9) g/dL Albumin 3.4 (3.2-5.2) g/dL Globulin 3.5 (2-4) g/dL Albumin/Globulin Ratio 1.0 (1-3) Lipase < 10 L (11.0-82.0) U/L TSH 5.22 (0.34-5.60) mcIU/mL Urine Color Urine Appearance Urine pH (5-9) Ur Specific [place] (1.010-1.030) Urine Protein (Negative) Urine Ketones (Negative) Urine Blood (Negative) Urine Nitrate (Negative) Urine Bilirubin (Negative) Urine Urobilinogen (Negative) Ur Leukocyte Esterase (Negative) Urine WBC (Auto) (Absent) Urine RBC (Auto) (Absent) Urine Bacteria (Absent) Urine Glucose (Negative) Acetaminophen < 15 mcg/mL Serum Alcohol < 10 (<10) mg/dL 09/26/16 09/26/16 09/26/16 Range/Units 13:00 13:00 15:30 WBC (3.5-10.8) 10^3/ul RBC (4.0-5.4) 10^6/ul Hgb (14.0-18.0) g/dl Hct (42-52) % MCV (80-94) fL MCH (27-31) pg MCHC (31-36) g/dl RDW (10.5-15) % Plt Count (150-450) 10^3/ul MPV (7.4-10.4) um3 Neut % (Auto) (38-83) % Lymph % (Auto) (25-47) % Walsh % (Auto) (1-9) % Eos % (Auto) (0-6) % Baso % (Auto) (0-2) % Absolute Neuts (auto) (1.5-7.7) 10^3/ul Absolute Lymphs (auto) (1.0-4.8) 10^3/ul Absolute Monos (auto) (0-0.8) 10^3/ul Absolute Eos (auto) (0-0.6) 10^3/ul Absolute Basos (auto) (0-0.2) 10^3/ul Absolute Nucleated RBC 10^3/ul Nucleated RBC % ESR (0-40) mm/Hr INR (Anticoag Therapy) (0.89-1.11) APTT (26.0-36.3) seconds Sodium (133-145) mmol/L Potassium (3.5-5.0) mmol/L Chloride (101-111) mmol/L Carbon Dioxide (22-32) mmol/L Anion Gap (2-11) mmol/L BUN (6-24) mg/dL Creatinine (0.67-1.17) mg/dL Est GFR ( Amer) (>60) Est GFR (Non-Af Amer) (>60) BUN/Creatinine Ratio (8-20) Glucose (70-100) mg/dL Lactic Acid 1.2 (0.5-2.0) mmol/L Calcium (8.6-10.3) mg/dL Magnesium (1.9-2.7) mg/dL Total Bilirubin (0.2-1.0) mg/dL AST (13-39) U/L ALT (7-52) U/L Alkaline Phosphatase (34-104) U/L Ammonia 25 (16-53) mol/L Total Creatine Kinase (10-223) U/L CK-MB (CK-2) (0.6-6.3) ng/mL Troponin I (<0.04) ng/mL C-Reactive Protein (< 5.00) mg/L B-Natriuretic Peptide 137 H ( - 100) pg/mL Total Protein (6.4-8.9) g/dL Albumin (3.2-5.2) g/dL Globulin (2-4) g/dL Albumin/Globulin Ratio (1-3) Lipase (11.0-82.0) U/L TSH (0.34-5.60) mcIU/mL Urine Color Yellow Urine Appearance Clear Urine pH 5.0 (5-9) Ur Specific [place] 1.016 (1.010-1.030) Urine Protein Negative (Negative) Urine Ketones Negative (Negative) Urine Blood 1+ H (Negative) Urine Nitrate Negative (Negative) Urine Bilirubin Negative (Negative) Urine Urobilinogen Negative (Negative) Ur Leukocyte Esterase Negative (Negative) Urine WBC (Auto) Trace(0-5/hpf) (Absent) Urine RBC (Auto) 1+(3-5/hpf) H (Absent) Urine Bacteria Absent (Absent) Urine Glucose Negative (Negative) Acetaminophen mcg/mL Serum Alcohol (<10) mg/dL Assess/Plan/Problems-Billing Assessment: 81 yo M h/o prostate ca, hypothyroidism, fibromyalgia, depression p/w visual hallucinations and found with elevated CRP/ESR with stay complicated by SI - Patient Problems (1) Depression Comment: complicated by suicidal ideation d/w psychiatry who will see in consultation pt will remain hospitalized until they render final recommendations (2) Polymyalgia rheumatica syndrome Comment: Suspect contributing to pain and elevated inflammatory markers. No other indication of infection Start predninsone 20mg daily and monitor (3) Visual hallucination Comment: Suspect in setting of polypharmacy and acute hospital acquired delerium stop doxycycline, cymbalata, and oxycodone. (4) Depression Comment: - Continue sertraline. (5) Hypothyroidism Comment: Continue levothyroxine. (6) Acute delirium Comment: hospital acquired with sundown effect windows open frequent reorientation (7) DVT prophylaxis Comment: HSQ
[2016-09-29] MEDS: Levothyroxine TAB* 100 MCG TAB PO SCH (05:31)
[2016-09-29] MEDS: Heparin VIAL(*) 5000 UNITS/ML VIAL (FIVE THOUSAND) SUBCUT SCH (05:32)
[2016-09-29] MEDS: Omeprazole CAP* 20 MG PO SCH (07:53)
[2016-09-29] MEDS: predniSONE TAB* 20 MG PO SCH (07:54)
[2016-09-29] MEDS: Docusate CAP* 100 MG PO SCH (07:54)
[2016-09-29] MEDS: Tamsulosin CAP* 0.4 MG PO SCH (07:54)
[2016-09-29] MEDS: Sertraline* 100 MG TAB PO SCH (07:54)
[2016-09-29 08:05] VITALS: BP 146/69
--- NOTE | 2016-09-30 09:56 | DS ---
CC: Dr. Onofre * DISCHARGE SUMMARY: DATE OF ADMISSION: 09/26/16 DATE OF DISCHARGE: 09/29/16 PRIMARY CARE PROVIDER: Dr. Michelle Onofre. PRIMARY DIAGNOSIS: 1. Acute delirium. 2. Depression with suicidal ideation. 3. Polymyalgia rheumatica. SECONDARY DIAGNOSES: 1. Visual hallucination. 2. Hypothyroidism. 3. Chronic pain. 4. Depression. MEDICATIONS ON DISCHARGE: 1. Tamsulosin 0.4 mg twice daily. 2. Prilosec 20 mg daily. 3. Naproxen 220 mg twice daily as needed for pain. 4. Lidocaine patch 5% transdermally daily. 5. Levothyroxine 100 mcg daily. 6. Lupron shot every 6 months as directed by neurologist. 7. Vitamin B12 of 1000 mcg daily. 8. Calcium/vitamin B tabs 1 to 2 tabs daily. 9. Excedrin extra strength 2 tabs twice daily as needed for headaches. 10. Prednisone 20 mg daily. 11. Zoloft 150 mg daily. CONSULTATIONS OBTAINED DURING THE HOSPITAL STAY: Psychiatry with Dr. Ibarra HISTORY OF PRESENT ILLNESS: This is an 81-year-old man with a past medical history as outlined in the history of present illness on the day of admission including chronic pain, recent hospital stay admitted with pain, was discharged taking oxycodone fairly consistently. Additionally, was recently started on Cymbalta for his depression as well as doxycycline secondary to concern for cellulitis surrounding recent bug bites. In the hospital during this stay, his CRP was noted to be grossly elevated since previous stay with a value of 89 as well as a CRP of 145 increased from 57 five days prior. In the setting diffuse joint pain, presumptive diagnosis of polymyalgia rheumatica was made. The patient was started on 20 mg of Prednisone with complete resolution of pain. The patient presented to the hospital for this stay after developing hallucinations at home. There is some concern that he had delirium in the setting of polypharmacy with oxycodone, doxycycline, and Cymbalta although hospital-acquired delirium was a slightly delayed presentation after a recent hospital stay as well as along the differential. In any case new medications were held. The patient was reoriented and started on prednisone with resolution of hallucinations except for one episode of sundowning which he became agitated and received Haldol overnight. After this episode the patient had worsening reactive depression. When queried about suicidal ideation he did indicate he would consider it and he had a plan which would include overdose of medications which could include Tylenol. For this reason, he was evaluated by psychiatry who did not deem him to be an acute threat to himself and will be safe for discharge. The patient was able to contract for safety, indicated that if he ever did consider suicide as an outpatient he would present to the emergency room. I also encouraged him to continue followup with his primary care provider. Referral to [facility] has been made. Over this time the patient does not seem interested in attending. His Zoloft was increased at the discretion of Dr. Sharpe from psychiatry. At followup please; 1. Evaluate depression and evaluate for presence of suicidal ideation. Adjust outpatient psychiatric medication/antidepressants as deemed necessary. 2. Continue steroids. Treatment of PMR, constitutes prolonged course with gradual tapering in several months from now. Will likely need repeat ESR and CRP at discretion. 3. No other specific labs or vitals that need followup. This is a complicated hospital stay. By the time the patient was discharged his pain, visual hallucinations, and suicidal ideation had resolved. Reasons to return to the hospital include but not limited to recurrent worsening symptoms including hallucinations, agitation, suicidal ideation, worsening pain, chest pain, shortness of breath, nausea, vomiting, lightheadedness, loss of consciousness, near loss of consciousness, inability to obtain or tolerate mediations were discussed with the patient and his family. They acknowledged understanding. Greater than 75 minutes was spent on the discharge of this patient, greater than half was spent [id number] with the patient and his family. [id number]/[facility] #: [id number] [facility] HOSPITALMalia
== END 2016-09-29 11:35 | disposition home or self-care (01) | DRG 897 ==
LOC: ED 10:54 → MED 15:32 → OBSVTOIN 09-27 09:51
PROVIDERS: ADMIT Internal Medicine; ATTEND Internal Medicine
DX: F11.921 Opioid use, unspecified with intoxication delirium (principal); R45.851 Suicidal ideations; C61 Malignant neoplasm of prostate; R44.2 Other hallucinations; F19.921 Other psychoactive substance use, unspecified with intoxication with delirium; F32.9 Major depressive disorder, single episode, unspecified; M35.3 Polymyalgia rheumatica; E03.9 Hypothyroidism, unspecified; G89.29 Other chronic pain; K21.9 Gastro-esophageal reflux disease without esophagitis; Z96.653 Presence of artificial knee joint, bilateral; Z85.820 Personal history of malignant melanoma of skin; Z79.899 Other long term (current) drug therapy; Z82.3 Family history of stroke; Z87.891 Personal history of nicotine dependence
CPT/HCPCS: 36415; 70450; 71010; 80048; 80053; 80320; 80329; 81003; 81015; 82140; 82550; 82553; 83605; 83690; 83735; 83880; 84443; 84484; 85025; 85610; 85652; 85730; 86140; 86618; 87040; 93005; A9270-GY; G0378; G0480; J1630; J1644; J7512

== ENCOUNTER 2017-01-04 08:16 | Emergency (ER) | payer MEDICARE, BC ==
[2017-01-04 10:25] VITALS: BP 138/74
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
== END 2017-01-04 10:32 | disposition home or self-care (01) ==
LOC: UCEAST 08:16
DX: S81.811A Laceration without foreign body, right lower leg, initial encounter (principal); L03.115 Cellulitis of right lower limb; W45.8XXA Other foreign body or object entering through skin, initial encounter; Y93.H9 Activity, other involving exterior property and land maintenance, building and construction; Y92.9 Unspecified place or not applicable; R03.0 Elevated blood-pressure reading, without diagnosis of hypertension; K21.9 Gastro-esophageal reflux disease without esophagitis; Z85.46 Personal history of malignant neoplasm of prostate; Z96.653 Presence of artificial knee joint, bilateral; Z87.891 Personal history of nicotine dependence
CPT/HCPCS: 99212; G0463

== ENCOUNTER 2017-01-06 14:35 | Emergency (ER) | payer MEDICARE, BC ==
[2017-01-06 15:44] VITALS: BP 129/79
--- NOTE | 2017-01-06 16:12 | UC ---
Lower Extremity/Ankle HPI - HPI Summary HPI Summary: 81 Y/O male being seen for recheck of RLE wound infection. Current treatment with Keflex. Wound is without drainage, skin is red but without inflammation. R foot with edema that improves with rest. Denies fever or chills. VS and PMH reviewed. - History of Current Complaint Chief Complaint: UCLowerExtremity Stated Complaint: INFECTION ON LEG Time Seen by Provider: 01/06/17 15:50 Hx Obtained From: Patient Onset/Duration: Gradual Onset Severity Initially: Mild Severity Currently: Moderate Pain Intensity: 5 - With pressure / palpation Pain Scale Used: 0-10 Numeric Aggravating Factor(s): Standing Alleviating Factor(s): Rest, Elevation Able to Bear Weight: Yes - Risk Factors Gout Risk Factors: Age Over 40, Male DVT Risk Factors: Negative Septic Arthritis Risk Factor: Negative - Allergies/Home Medications Allergies/Adverse Reactions: Allergies Allergy/AdvReac Type Severity Reaction Status Date / Time No Known Drug Allergy Allergy See Comment Verified 01/04/17 08:28 seafood Allergy Severe Vomiting Uncoded 01/04/17 08:28 PMH/Surg Hx/FS Hx/Imm Hx Previously Healthy: Yes Endocrine History: Hypothyroidism - Surgical History Surgical History: Yes Surgery Procedure, Year, and Place: MELANOMA TOP OF HEAD, CORNER OF LEFT EYE. BILATERAL KNEE REPLACEMENT - 2011. [facility]. UNDESCENDED TESTICLE REMOVAL - Family History Known Family History: Positive: Other - OSTEOPENIA - Social History Alcohol Use: Daily Alcohol Amount: 2/day Substance Use Type: None Substance Use Comment - Amount & Last Used: percocet prn Smoking Status (MU): Former Smoker Type: Cigarettes Have You Smoked in the Last Year: No Household Exposure Type: Cigarettes - Immunization History Most Recent Influenza Vaccination: 2014/2015 Review of Systems Constitutional: Negative Skin: Negative Eyes: Negative ENT: Negative Respiratory: Negative Cardiovascular: Negative Gastrointestinal: Negative Genitourinary: Negative Motor: Negative Neurovascular: Negative Musculoskeletal: Negative Neurological: Negative Psychological: Negative Is Patient Immunocompromised?: No All Other Systems Reviewed And Are Negative: Yes Physical Exam Triage Information Reviewed: Yes Appearance: Well-Appearing Vital Signs: Initial Vital Signs Temp 96.5 F 01/06/17 15:35 Pulse 85 01/06/17 15:35 Resp 18 01/06/17 15:35 BP 129/79 01/06/17 15:35 Pulse Ox 99 01/06/17 15:35 Respiratory Exam: Normal Respiratory: Positive: Lungs clear Cardiovascular Exam: Normal Cardiovascular: Positive: RRR Musculoskeletal Exam: Other Musculoskeletal: Positive: Edema @ - R foot and ankle Neurological Exam: Normal Psychological Exam: Normal Skin Exam: Normal Lower Extremity Course/Dx - Differential Dx/Diagnosis Differential Diagnosis/HQI/PQRI: Cellulitis, Infection Provider Diagnoses: Cellulitis follow up Discharge - Discharge Plan Condition: Stable Disposition: HOME Patient Education Materials: Edema (ED), Cellulitis (ED) Additional Instructions: Elevate your legs as tolerated. Continue to take your antibiotics as directed. May return to Urgent Care or see your primary medical provider if pain does not improve over the next week.
== END 2017-01-06 16:30 | disposition home or self-care (01) ==
LOC: UCEAST 14:35
DX: L03.90 Cellulitis, unspecified (principal); E03.9 Hypothyroidism, unspecified; Z87.891 Personal history of nicotine dependence; Z91.013 Allergy to seafood
CPT/HCPCS: 99201; G0463